=== PATIENT | female | born 1965 | race Caucasian/White ===

== ENCOUNTER 2017-10-30 21:22 | Emergency (ER) | payer OTHER ==
[2017-10-30] MEDS: IV NORMAL SALINE 1000ML BAG 1,000 ML IV ×2 (21:58)
[2017-10-30] MEDS: ASPIRIN CHEWABLE 81 MG TABLET. PO ×2 (21:58)
[2017-10-30] MEDS: IBUPROFEN 800 MG TABLET. PO ×2 (21:58)
[2017-10-30 22:20] LABS: ADD MAN DIFF? NO
[2017-10-30 22:21] LABS: BASO % 0 % (0-3); EOS # 0.2 x10^3/uL (0.0-0.7); EOS % 3 % (0-3); HEMOGLOBIN 13.4 g/dL (12.0-15.5); LYMPH # 2.5 x10^3/uL (1.0-4.8); LYMPH % 37 % (24-48); MEAN CORPUSCULAR HEMOGLOBIN 34 pg (25-35); MEAN CORPUSCULAR HGB CONC 35 g/dL (31-37); MEAN CORPUSCULAR VOLUME 98 fL (79-100); MONO # 0.4 x10^3/uL (0.0-1.1); MONO % 6 % (0-9); NEUT # 3.7 x10^3uL (1.8-7.7); NEUT % 54 % (31-73); PLATELET COUNT 238 x10^3/uL (140-400); RED BLOOD COUNT 3.99 x10^6/uL (3.50-5.40); RED CELL DISTRIBUTION WIDTH 12.5 % (11.5-14.5); WHITE BLOOD COUNT 6.9 x10^3/uL (4.0-11.0)
[2017-10-30 22:39] LABS: ANION GAP 4 (6-14); BLOOD UREA NITROGEN 13 mg/dL (7-20); BUN/CREATININE RATIO 14 (6-20); CALCIUM 8.6 mg/dL (8.5-10.1); CARBON DIOXIDE 29 mmol/L (21-32); CHLORIDE 105 mmol/L (98-107); CREATININE 0.9 mg/dL (0.6-1.0); GFR 65.8; GLUCOSE 88 mg/dL (70-99); POTASSIUM 3.8 mmol/L (3.5-5.1); SODIUM 138 mmol/L (136-145)
[2017-10-30 22:45] LABS: ALBUMIN 3.1 g/dL (3.4-5.0); ALBUMIN/GLOBULIN RATIO 0.9 (1.0-1.7); ALK PHOS 93 U/L (46-116); ALT (SGPT) 22 U/L (14-59); AST (SGOT) 22 U/L (15-37); TOTAL BILIRUBIN 0.1 mg/dL (0.2-1.0); TOTAL PROTEIN 6.6 g/dL (6.4-8.2)
[2017-10-30 22:49] LABS: TROPONINI < 0.017 ng/mL (0.000-0.055)
== END 2017-10-30 23:54 | disposition home or self-care (01) ==
LOC: ER 23:54
DX: R07.89 Other chest pain (principal); Z95.0 Presence of cardiac pacemaker; Z90.49 Acquired absence of other specified parts of digestive tract; Z79.82 Long term (current) use of aspirin
CPT/HCPCS: 36415; 71045; 80053; 84484; 85025; 93005; 96360; 99285-25; J7030

== ENCOUNTER 2018-08-20 07:31 | Emergency (ER) | payer OTHER ==
[~2018-08-20] VITALS: Ht 154.9 cm; Wt 65.8 kg
[~2018-08-20 07:31] MED LIST: Acetaminophen PO; IBUP-1027 PO; LIDO700A4 TD; NAPR-683 PO; ONDA4TAB10 SL
--- NOTE | 2018-08-20 08:34 | RAD ---
CHEST PA LATERAL Clinical indications: LEFT SIDED CHEST PAIN X TODAY COMPARISON: October 30, 2017. Findings: No acute lung infiltrate or pleural effusion or pulmonary edema or lung mass or pneumothorax is seen. Bipolar intraventricular pacemaker is again evident The heart size, pulmonary vasculature, mediastinum and both lesley are stable. The osseous structures appear intact. Impression: No acute radiographic abnormality is seen. Electronically signed by: Geronimo Doran MD (08/20/2018 8:30 AM) [facility]
--- NOTE | 2018-08-20 08:53 | EKG ---
[facility] [address] [place] [address] Test Date: 2018-08-20 Test Time: 07:38:24 Pat Name: BRODIE GUTHRIE Department: Room: Gender: F Accredited Pharmacy Technician: : 1965 Requested By: FRAN KAUFFMAN Order Number: [id number] Reading MD: Measurements Intervals [place] Rate: 69 P: 48 CT: 176 QRS: 11 QRSD: 82 T: 24 QT: 414 QTc: 445 Interpretive Statements SINUS RHYTHM LEFT ATRIAL ABNORMALITY INCOMPLETE RIGHT BUNDLE BRANCH BLOCK ABNORMAL ECG RI6.01 No previous ECG available for comparison
--- NOTE | 2018-08-20 09:18 | PHYS DOC ---
Past Medical History Past Medical History: Arrhythmia Additional Past Medical Histor: neurocardiogenic syncope, PACER Past Surgical History: Cholecystectomy, Pacemaker Alcohol Use: None Drug Use: None Adult General Chief Complaint Chief Complaint: CHEST PAIN HPI HPI Patient is a 53 year old [f__sex] who presents with [] Review of Systems Review of Systems Constitutional: Denies fever or chills [] Eyes: Denies change in visual acuity, redness, or eye pain [] HENT: Denies nasal congestion or sore throat [] Respiratory: Denies cough or shortness of breath [] Cardiovascular: No additional information not addressed in HPI [] GI: Denies abdominal pain, nausea, vomiting, bloody stools or diarrhea [] : Denies dysuria or hematuria [] Musculoskeletal: Denies back pain or joint pain [] Integument: Denies rash or skin lesions [] Neurologic: Denies headache, focal weakness or sensory changes [] Endocrine: Denies polyuria or polydipsia [] All other systems were reviewed and found to be within normal limits, except as documented in this note. Allergies Allergies Allergies Coded Allergies Type Severity Reaction Last Updated Verified Sulfa (Sulfonamide Antibiotics) Allergy Intermediate 04/17/14 No Physical Exam Physical Exam Constitutional: Well developed, well nourished, no acute distress, non-toxic appearance. [] HENT: Normocephalic, atraumatic, bilateral external ears normal, oropharynx moist, no oral exudates, nose normal. [] Eyes: PERRLA, EOMI, conjunctiva normal, no discharge. [] Neck: Normal range of motion, no tenderness, supple, no stridor. [] Cardiovascular:Heart rate regular rhythm, no murmur [] Lungs & Thorax: Bilateral breath sounds clear to auscultation [] Abdomen: Bowel sounds normal, soft, no tenderness, no masses, no pulsatile masses. [] Skin: Warm, dry, no erythema, no rash. [] Back: No tenderness, no CVA tenderness. [] Extremities: No tenderness, no cyanosis, no clubbing, ROM intact, no edema. [] Neurologic: Alert and oriented X 3, normal motor function, normal sensory function, no focal deficits noted. [] Psychologic: Affect normal, judgement normal, mood normal. [] Current Patient Data Vital Signs Vital Signs Date Time Temp Pulse Resp B/P (MAP) Pulse Ox O2 Delivery O2 Flow Rate FiO2 08/20/18 07:42 97.6 65 18 164/85 (111) 100 Room Air 97.6 Lab Values Laboratory Tests Test 08/20/18 09:05 White Blood Count 8.3 x10^3/uL (4.0-11.0) Red Blood Count 4.31 x10^6/uL (3.50-5.40) Hemoglobin 15.1 g/dL (12.0-15.5) Hematocrit 42.4 % (36.0-47.0) Mean Corpuscular Volume 98 fL (79-100) Mean Corpuscular Hemoglobin 35 pg (25-35) Mean Corpuscular Hemoglobin Concent 36 g/dL (31-37) Red Cell Distribution Width 12.3 % (11.5-14.5) Platelet Count 234 x10^3/uL (140-400) Neutrophils (%) (Auto) 70 % (31-73) Lymphocytes (%) (Auto) 22 % (24-48) L Monocytes (%) (Auto) 4 % (0-9) Eosinophils (%) (Auto) 3 % (0-3) Basophils (%) (Auto) 1 % (0-3) Neutrophils # (Auto) 5.9 x10^3uL (1.8-7.7) Lymphocytes # (Auto) 1.8 x10^3/uL (1.0-4.8) Monocytes # (Auto) 0.3 x10^3/uL (0.0-1.1) Eosinophils # (Auto) 0.3 x10^3/uL (0.0-0.7) Basophils # (Auto) 0.1 x10^3/uL (0.0-0.2) Sodium Level 140 mmol/L (136-145) Potassium Level 4.0 mmol/L (3.5-5.1) Chloride Level 103 mmol/L (98-107) Carbon Dioxide Level 26 mmol/L (21-32) Anion Gap 11 (6-14) Blood Urea Nitrogen 11 mg/dL (7-20) Creatinine 0.8 mg/dL (0.6-1.0) Estimated GFR (Cockcroft-Gault) 75.0 BUN/Creatinine Ratio 14 (6-20) Glucose Level 79 mg/dL (70-99) Calcium Level 9.9 mg/dL (8.5-10.1) Total Bilirubin 0.4 mg/dL (0.2-1.0) Aspartate Amino Transferase (AST) 20 U/L (15-37) Alanine Aminotransferase (ALT) 21 U/L (14-59) Alkaline Phosphatase 128 U/L (46-116) H Troponin I Quantitative < 0.017 ng/mL (0.000-0.055) Total Protein 8.6 g/dL (6.4-8.2) H Albumin 3.9 g/dL (3.4-5.0) Albumin/Globulin Ratio 0.8 (1.0-1.7) L Laboratory Tests 08/20/18 09:05 Laboratory Tests 08/20/18 09:05 EKG EKG [] Radiology/Procedures Radiology/Procedures [] PATIENT: BRODIE GUTHRIE ACCOUNT: [id number] : 1965 LOCATION: ER AGE: 53 SEX: F EXAM STATUS: REG ER ORD. PHYSICIAN: FRAN KAUFFMAN APRN REASON: fell, chest pain PROCEDURE: CHEST PA & LATERAL CHEST PA LATERAL Clinical indications: LEFT SIDED CHEST PAIN X TODAY COMPARISON: October 30, 2017. Findings: No acute lung infiltrate or pleural effusion or pulmonary edema or lung mass or pneumothorax is seen. Bipolar intraventricular pacemaker is again evident The heart size, pulmonary vasculature, mediastinum and both lesley are stable. The osseous structures appear intact. Impression: No acute radiographic abnormality is seen. Electronically signed by: Paige Doran MD (08/20/2018 8:30 AM) [facility] DICTATED and SIGNED BY: PAIGE DORAN MD DATE: 08/20/18 0828 Course & Med Decision Making Course & Med Decision Making Pertinent Labs and Imaging studies reviewed. (See chart for details) [] Dragon Disclaimer Dragon Disclaimer This electronic medical record was generated, in whole or in part, using a voice recognition dictation system. Departure Departure Impression: Primary Impression: Shoulder pain Additional Impression: Rib pain Disposition: 01 HOME, SELF-CARE Condition: STABLE Referrals: SHAHRAM GRAFF MD (PCP) Patient Instructions: Rib Contusion, Shoulder Pain Additional Instructions: You may take ibuprofen or Tylenol at home for pain. You may use ice packs or heating pad for comfort. Follow-up with your primary care provider in 3 days if not improving or return to the emergency department if worsening. Problem Qualifiers FRAN KAUFFMAN APRN Aug 20, 2018 09:18
[2018-08-20 09:19] LABS: BASO # 0.1 x10^3/uL (0.0-0.2); BASO % 1 % (0-3); EOS # 0.3 x10^3/uL (0.0-0.7); EOS % 3 % (0-3); HEMATOCRIT 42.4 % (36.0-47.0); HEMOGLOBIN 15.1 g/dL (12.0-15.5); LYMPH # 1.8 x10^3/uL (1.0-4.8); LYMPH % 22 % (24-48); MEAN CORPUSCULAR HEMOGLOBIN 35 pg (25-35); MEAN CORPUSCULAR HGB CONC 36 g/dL (31-37); MEAN CORPUSCULAR VOLUME 98 fL (79-100); MONO # 0.3 x10^3/uL (0.0-1.1); MONO % 4 % (0-9); NEUT # 5.9 x10^3uL (1.8-7.7); NEUT % 70 % (31-73); PLATELET COUNT 234 x10^3/uL (140-400); RED BLOOD COUNT 4.31 x10^6/uL (3.50-5.40); RED CELL DISTRIBUTION WIDTH 12.3 % (11.5-14.5); WHITE BLOOD COUNT 8.3 x10^3/uL (4.0-11.0)
[2018-08-20 09:38] LABS: CALCIUM 9.9 mg/dL (8.5-10.1); CREATININE 0.8 mg/dL (0.6-1.0)
[2018-08-20 09:41] LABS: ALBUMIN 3.9 g/dL (3.4-5.0); ALBUMIN/GLOBULIN RATIO 0.8 (1.0-1.7); TOTAL BILIRUBIN 0.4 mg/dL (0.2-1.0); TOTAL PROTEIN 8.6 g/dL (6.4-8.2)
[2018-08-20 10:30] VITALS: BP 132/72
== END 2018-08-20 10:45 | disposition home or self-care (01) ==
LOC: ER 07:31
DX: R07.81 Pleurodynia (principal); M25.512 Pain in left shoulder; G89.11 Acute pain due to trauma; Z95.0 Presence of cardiac pacemaker; Z88.2 Allergy status to sulfonamides; W10.8XXA Fall (on) (from) other stairs and steps, initial encounter; Y93.89 Activity, other specified; Y92.89 Other specified places as the place of occurrence of the external cause; Y99.8 Other external cause status
CPT/HCPCS: 36415; 71046; 80053; 84484; 85025; 93005; 99284

== ENCOUNTER 2018-09-06 21:20 | Emergency (ER) | payer OTHER ==
[~2018-09-06] VITALS: Ht 154.9 cm; Wt 65.8 kg
[~2018-09-06 21:20] MED LIST changes: +BENZ100C PO
[2018-09-06] MEDS ORDERED: CYCL5TAB PO (21:56)
--- NOTE | 2018-09-06 21:57 | PHYS DOC ---
Past Medical History Past Medical History: Arrhythmia, Hepatitis Additional Past Medical Histor: neurocardiogenic syncope, PACER Past Surgical History: Cholecystectomy, Pacemaker Alcohol Use: None Drug Use: None Adult General Chief Complaint Chief Complaint: Congestion HPI HPI Patient is a 53 year old female who presents with a hacking cough and congestion. The patient states that she was seen in this facility approximately one week ago and diagnosed with an upper respiratory infection. She states that her cough has significantly worsened and she is now coughing to the point of losing urine. She denies fever, sore throat, earaches or nausea and vomiting. She has been taking dyer-zwz-pdztsiz cough medication with little relief. Review of Systems Review of Systems Constitutional: Denies fever or chills [] Eyes: Denies change in visual acuity, redness, or eye pain [] HENT: Denies nasal congestion or sore throat [] Respiratory: See history of present illness Cardiovascular: No additional information not addressed in HPI [] GI: Denies abdominal pain, nausea, vomiting, bloody stools or diarrhea [] : Denies dysuria or hematuria [] Musculoskeletal: Denies back pain or joint pain [] Integument: Denies rash or skin lesions [] Neurologic: Denies headache, focal weakness or sensory changes [] Endocrine: Denies polyuria or polydipsia [] All other systems were reviewed and found to be within normal limits, except as documented in this note. Current Medications Current Medications Current Medications Medications (Trade) Dose Ordered Sig/Tiara Start Time Stop Time Status Last Admin Dose Admin Albuterol Sulfate (Ventolin Neb Soln) 2.5 mg 1X ONCE 09/06/18 22:15 09/06/18 22:16 DC 09/06/18 22:44 2.5 MG Guaifenesin/ Codeine Phosphate (Robitussin Ac) 5 ml PRN Q6HRS PRN 09/06/18 22:15 09/06/18 23:02 DC 09/06/18 22:29 5 ML Prednisone (Prednisone) 50 mg 1X ONCE 09/06/18 22:15 09/06/18 22:16 DC 09/06/18 22:30 50 MG Allergies Allergies Allergies Coded Allergies Type Severity Reaction Last Updated Verified Sulfa (Sulfonamide Antibiotics) Allergy Intermediate 04/17/14 No Physical Exam Physical Exam Constitutional: Well developed, well nourished, no acute distress, non-toxic appearance. [] HENT: Normocephalic, atraumatic, bilateral tympanic membranes normal, oropharynx moist, no oral exudates, nose normal. [] Eyes: PERRLA, EOMI, conjunctiva normal, no discharge. [] Neck: Normal range of motion, no tenderness, supple, no stridor. [] Cardiovascular:Heart rate regular rhythm, no murmur [] Lungs & Thorax: Bilateral breath sounds decreased with a harsh hacking cough noted Abdomen: Bowel sounds normal, soft, no tenderness, no masses, no pulsatile masses. [] Skin: Warm, dry, no erythema, no rash. [] Back: No tenderness, no CVA tenderness. [] Extremities: No tenderness, no cyanosis, no clubbing, ROM intact, no edema. [] Neurologic: Alert and oriented X 3, normal motor function, normal sensory function, no focal deficits noted. [] Psychologic: Affect normal, judgement normal, mood normal. [] Current Patient Data Vital Signs Vital Signs Date Time Temp Pulse Resp B/P (MAP) Pulse Ox O2 Delivery O2 Flow Rate FiO2 09/06/18 22:43 99 Room Air 09/06/18 22:01 98.2 81 18 159/78 (105) 98.2 EKG EKG [] Radiology/Procedures Radiology/Procedures []No acute cardiopulmonary process noted. This x-ray was read by Dr. Boyce in the emergency department. Course & Med Decision Making Course & Med Decision Making Pertinent Labs and Imaging studies reviewed. (See chart for details) []The patient was given prednisone, and albuterol treatment as well as codeine cough medication in the emergency department. Dragon Disclaimer Dragon Disclaimer This electronic medical record was generated, in whole or in part, using a voice recognition dictation system. Departure Departure Impression: Primary Impression: Bronchitis Disposition: 01 HOME, SELF-CARE Condition: STABLE Referrals: SHAHRAM GRAFF MD (PCP) Patient Instructions: Acute Bronchitis Additional Instructions: Take medications as prescribed. Do not drive or operate heavy machinery while taking the cough medication. Follow-up with your primary care provider for recheck in 3 days or return to the emergency department if worsening. Scripts Albuterol Sulfate (Proair Hfa) 8.5 Gm Hfa.aer.ad 1 PUFF INH PRN Q6HRS PRN for SHORTNESS OF BREATH, #1 INHALER Prov: FRAN KAUFFMAN APRN 09/06/18 Prednisone (PREDNISONE) 50 Mg Tablet 1 TAB PO DAILY for bronchitis, #5 TAB Prov: FRAN KAUFFMAN APRN 09/06/18 Hydrocodone/Chlorphen Polis (HYDROCODONE-CHLORPHENIRAM SUSP) 5 Ml Sharonda.er.12h 5 ML PO PRN Q12HR PRN for COUGH, #120 ML 0 Refills Prov: FRAN KAUFFMAN APRN 09/06/18 Azithromycin (ZITHROMAX) 250 Mg Tablet 1 PKG PO UD for bronchitis, #1 PKG Prov: FRAN KAUFFMAN APRN 09/06/18 FRAN KAUFFMAN APRN Sep 06, 2018 21:57
[2018-09-06 22:01] VITALS: BP 159/78
[2018-09-06] MEDS ORDERED: predniSONE 10 MG TABLET PO ONE (22:15)
[2018-09-06] MEDS ORDERED: ALBUTEROL SULFATE 2.5 MG/3 ML NEBU. NEB ONE (22:15)
[2018-09-06] MEDS ORDERED: guaiFENesin/CODEINE 100mg/10mg 5 ML LIQUID PO PRN (22:15)
[2018-09-06] MEDS ORDERED: AZIT250T PO (22:48)
[2018-09-06] MEDS ORDERED: HYDR5SUS PO (22:48)
[2018-09-06] MEDS ORDERED: ALBU2.5V8 INH (22:49)
[2018-09-06] MEDS ORDERED: PRED50TA PO (22:49)
--- NOTE | 2018-09-06 23:59 | RAD ---
Chest PA and lateral 09/06/2018. Reason for exam: Productive cough for 2 weeks. Comparison is made with a study of 08/20/2018. A pacemaker device remains in place. There may be slightly less interstitial prominence in the lungs. No new infiltrate or effusion is seen. Heart size and pulmonary vascularity appear normal. IMPRESSION: No acute findings. Electronically signed by: Henry Ruff Jr., MD (09/06/2018 11:55 PM) [facility]
== END 2018-09-06 22:55 | disposition home or self-care (01) ==
LOC: ER 21:20
DX: J40 Bronchitis, not specified as acute or chronic (principal); Z90.49 Acquired absence of other specified parts of digestive tract; Z86.19 Personal history of other infectious and parasitic diseases
CPT/HCPCS: 71046; 94640; 99283; J7512; J7613

== ENCOUNTER 2018-09-14 17:46 | Emergency (ER) | payer OTHER ==
[~2018-09-14] VITALS: Ht 154.9 cm; Wt 63.5 kg
[~2018-09-14 17:46] MED LIST changes: +ALBU2.5V8 INH; +AZIT250T PO; +CYCL5TAB PO; +HYDR5SUS PO; +PRED50TA PO
[2018-09-14 18:56] LABS: BILIRUBIN,URINE NEGATIVE (NEG); CLARITY,URINE CLEAR; COLOR,URINE YELLOW; NITRITE,URINE NEGATIVE (NEG); PH,URINE 6.5; PROTEIN,URINE NEGATIVE (NEG-TRACE); UROBILINOGEN,URINE 0.2 mg/dL (0.2 mg/dL)
[2018-09-14 18:56] LABS: BASO # 0.1 x10^3/uL (0.0-0.2); BASO % 1 % (0-3); EOS # 0.3 x10^3/uL (0.0-0.7); EOS % 3 % (0-3); HEMATOCRIT 39.3 % (36.0-47.0); HEMOGLOBIN 13.8 g/dL (12.0-15.5); LYMPH # 2.8 x10^3/uL (1.0-4.8); LYMPH % 26 % (24-48); MEAN CORPUSCULAR HEMOGLOBIN 34 pg (25-35); MEAN CORPUSCULAR HGB CONC 35 g/dL (31-37); MEAN CORPUSCULAR VOLUME 98 fL (79-100); MONO # 0.6 x10^3/uL (0.0-1.1); MONO % 6 % (0-9); NEUT # 6.8 x10^3uL (1.8-7.7); NEUT % 65 % (31-73); PLATELET COUNT 251 x10^3/uL (140-400); RED BLOOD COUNT 4.01 x10^6/uL (3.50-5.40); RED CELL DISTRIBUTION WIDTH 12.7 % (11.5-14.5); WHITE BLOOD COUNT 10.6 x10^3/uL (4.0-11.0)
[2018-09-14 19:05] LABS: FECAL OB PT NEGATIVE (NEG)
[2018-09-14 19:07] LABS: BACTERIA,URINE 0 /HPF (0-FEW); RBC,URINE 0 /HPF (0-2); SQUAMOUS EPITHELIAL CELL,UR OCC /LPF; WBC,URINE OCC /HPF (0-4)
[2018-09-14 19:16] LABS: CALCIUM 8.9 mg/dL (8.5-10.1); CREATININE 0.9 mg/dL (0.6-1.0); GFR 65.5; POTASSIUM 3.4 mmol/L (3.5-5.1)
[2018-09-14 20:15] VITALS: BP 126/83
[2018-09-14] MEDS ORDERED: POTASSIUM CHLORIDE 20 MEQ TABLET.ER. PO ONE (20:15)
[2018-09-14] MEDS ORDERED: ALBU2.5V8 INH (20:43)
--- NOTE | 2018-09-14 20:44 | PHYS DOC ---
Past Medical History Past Medical History: Arrhythmia, Hepatitis Additional Past Medical Histor: neurocardiogenic syncope, PACER Past Surgical History: Cholecystectomy, Pacemaker Alcohol Use: None Drug Use: None Adult General Chief Complaint Chief Complaint: FLU SYMPTOM HPI HPI Patient is a 53 year old female, accompanied by her family, who presents to the emergency department with complaints of continued dry cough, chest congestion, and nasal congestion for the last 3 weeks. Patient states she has had diarrhea for the last 3 days. She states that she has been seen for upper respiratory illness several times in the ER recently but she feels like she is getting worse. Patient denies any fever, nausea, vomiting, or abdominal pain. She states that after she has diarrhea there is bright red blood on the toilet tissue. She denies any foul odor to the stools or any black stools. She reports fatigue and generalized body aches since the onset of her respiratory illness 3 weeks ago. Review of Systems Review of Systems Constitutional: Denies fever, see history of present illness Eyes: Denies redness, or eye pain [] HENT: Denies ear pain or sore throat; see history of present illness [] Respiratory: Reports dry cough with mild shortness of breath, denies wheezing Cardiovascular: No additional information not addressed in HPI [] GI: Denies abdominal pain, nausea, or vomiting; see history of present illness : Denies dysuria or hematuria [] Musculoskeletal: Reports generalized body aches Integument: Denies rash or skin lesions [] Neurologic: Denies headache, focal weakness or sensory changes [] Complete systems were reviewed and found to be within normal limits, except as documented in this note. Current Medications Current Medications Current Medications Medications (Trade) Dose Ordered Sig/Tiara Start Time Stop Time Status Last Admin Dose Admin Potassium Chloride (Klor-Con) 20 meq 1X ONCE 09/14/18 20:15 09/14/18 20:16 DC 09/14/18 20:17 20 MEQ Allergies Allergies Allergies Coded Allergies Type Severity Reaction Last Updated Verified Sulfa (Sulfonamide Antibiotics) Allergy Intermediate 04/17/14 No Physical Exam Physical Exam Constitutional: Well developed, well nourished, no acute distress, non-toxic appearance. [] HENT: Normocephalic, atraumatic, bilateral external ears normal, bilateral TMs normal, posterior pharynx normal, oropharynx moist, no oral exudates, nose normal. [] Eyes: conjunctiva normal, no discharge. [] Neck: Normal range of motion, no tenderness, supple, no stridor. [] Cardiovascular:Heart rate regular rhythm, no murmur [] Lungs & Thorax: Bilateral breath sounds clear to auscultation [] Abdomen: Bowel sounds normal, soft, no tenderness, no masses, no pulsatile masses. Rectal Exam: Normal tone, No mass, Positive control Stool: Brown Guaiac: Negative [] Skin: Warm, dry, no erythema, no rash. [] Extremities: No cyanosis, no clubbing, ROM intact, no edema. [] Neurologic: Alert and oriented X 3, normal motor function, normal sensory function, no focal deficits noted. [] Psychologic: Affect normal, judgement normal, mood normal. [] Current Patient Data Vital Signs Vital Signs Date Time Temp Pulse Resp B/P (MAP) Pulse Ox O2 Delivery O2 Flow Rate FiO2 09/14/18 20:15 70 18 126/83 (97) 99 09/14/18 18:05 97.6 Room Air 97.6 Lab Values Laboratory Tests Test 09/14/18 18:20 09/14/18 18:38 09/14/18 18:44 Stool Occult Blood Negative (NEG) Urine Color Yellow Urine Clarity Clear Urine pH 6.5 Urine Specific Roe <=1.005 Urine Protein Negative mg/dL (NEG-TRACE) Urine Glucose (UA) Negative mg/dL (NEG) Urine Ketones (Stick) Negative mg/dL (NEG) Urine Blood Negative (NEG) Urine Nitrite Negative (NEG) Urine Bilirubin Negative (NEG) Urine Urobilinogen Dipstick 0.2 mg/dL (0.2 mg/dL) Urine Leukocyte Esterase Negative (NEG) Urine RBC 0 /HPF (0-2) Urine WBC Occ /HPF (0-4) Urine Squamous Epithelial Cells Occ /LPF Urine Bacteria 0 /HPF (0-FEW) White Blood Count 10.6 x10^3/uL (4.0-11.0) Red Blood Count 4.01 x10^6/uL (3.50-5.40) Hemoglobin 13.8 g/dL (12.0-15.5) Hematocrit 39.3 % (36.0-47.0) Mean Corpuscular Volume 98 fL (79-100) Mean Corpuscular Hemoglobin 34 pg (25-35) Mean Corpuscular Hemoglobin Concent 35 g/dL (31-37) Red Cell Distribution Width 12.7 % (11.5-14.5) Platelet Count 251 x10^3/uL (140-400) Neutrophils (%) (Auto) 65 % (31-73) Lymphocytes (%) (Auto) 26 % (24-48) Monocytes (%) (Auto) 6 % (0-9) Eosinophils (%) (Auto) 3 % (0-3) Basophils (%) (Auto) 1 % (0-3) Neutrophils # (Auto) 6.8 x10^3uL (1.8-7.7) Lymphocytes # (Auto) 2.8 x10^3/uL (1.0-4.8) Monocytes # (Auto) 0.6 x10^3/uL (0.0-1.1) Eosinophils # (Auto) 0.3 x10^3/uL (0.0-0.7) Basophils # (Auto) 0.1 x10^3/uL (0.0-0.2) Sodium Level 136 mmol/L (136-145) Potassium Level 3.4 mmol/L (3.5-5.1) L Chloride Level 103 mmol/L (98-107) Carbon Dioxide Level 28 mmol/L (21-32) Anion Gap 5 (6-14) L Blood Urea Nitrogen 11 mg/dL (7-20) Creatinine 0.9 mg/dL (0.6-1.0) Estimated GFR (Cockcroft-Gault) 65.5 Glucose Level 84 mg/dL (70-99) Calcium Level 8.9 mg/dL (8.5-10.1) Laboratory Tests 09/14/18 18:44 Laboratory Tests 09/14/18 18:44 EKG EKG [] Radiology/Procedures Radiology/Procedures CXR negative for acute findings, read by Dr. Tamez[] Course & Med Decision Making Course & Med Decision Making Pertinent Labs and Imaging studies reviewed. (See chart for details) Advised patient of lab results and chest x-ray report. Patient was given a by mouth potassium in the emergency department. Clear fluids were encouraged for the next 24 hours then advance diet as tolerated. Prescription for an albuterol inhaler was written. Patient encouraged to take gemq-ujl-gqokuzq medication as needed for cough. Follow-up with primary care doctor next week, return to ER symptoms are worse. Patient verbalized an understanding of home care, medications, follow-up, and return to ED instructions and was in agreement with the plan of care. [] Dragon Disclaimer Dragon Disclaimer This electronic medical record was generated, in whole or in part, using a voice recognition dictation system. Departure Departure Impression: Primary Impression: Diarrhea Additional Impressions: URI with cough and congestion Hypokalemia Disposition: 01 HOME, SELF-CARE Condition: STABLE Referrals: SHAHRAM GRAFF MD (PCP) Patient Instructions: Diarrhea, Pada-ks-Gfmi, Upper Respiratory Infection, Adult, Espc-md-Nxdu Additional Instructions: Fill prescriptions and use them as directed. Recommend clear fluids for the next 24 hours. Then you may advance to bland foods such as bananas, rice, applesauce, and dry toast. Follow-up with your primary care doctor in the next 1 -2 days. Return to the emergency room if your symptoms worsen. Scripts Albuterol Sulfate (PROAIR HFA INHALER) 8.5 Gm Hfa.aer.ad 1-2 PUFF INH PRN Q6HRS PRN for SHORTNESS OF BREATH for 10 Days, #1 INHALER 0 Refills Prov: WISAM PETERSEN APRN 09/14/18 Problem Qualifiers Primary Impression: Diarrhea Diarrhea type: unspecified type Qualified Codes: R19.7 - Diarrhea, unspecified WISAM PETERSEN [employer] Sep 14, 2018 20:43
--- NOTE | 2018-09-14 23:53 | RAD ---
Chest PA and lateral: Reason for examination: Cough for 3 weeks. Comparison is made to previous study dated 09/06/2018. Pacemaker remains present over the right hemithorax. The heart size is normal. Mediastinum is unremarkable. Lung simeon are clear. No acute bony abnormalities are seen. Impression: No acute cardiopulmonary disease. Electronically signed by: Jessica Trinh MD (09/14/2018 11:48 PM) [facility]
== END 2018-09-14 20:53 | disposition home or self-care (01) ==
LOC: ER 17:46
DX: J06.9 Acute upper respiratory infection, unspecified (principal); R19.7 Diarrhea, unspecified; E87.6 Hypokalemia; Z95.0 Presence of cardiac pacemaker; Z88.2 Allergy status to sulfonamides
CPT/HCPCS: 36415; 71046; 80048; 81001; 82274; 85025; 99284

== ENCOUNTER 2019-11-21 20:19 | Emergency (ER) | payer OTHER ==
[~2019-11-21] VITALS: Ht 154.9 cm; Wt 59.0 kg
--- NOTE | 2019-11-21 20:33 | PHYS DOC ---
Past Medical History Past Medical History: Arrhythmia, Hepatitis Additional Past Medical Histor: neurocardiogenic syncope, PACER Past Surgical History: Cholecystectomy, Pacemaker Smoking Status: Never Smoker Alcohol Use: None Drug Use: None Adult General Chief Complaint Chief Complaint: CHEST PAIN [facility] HPI 54-year-old female presents to the emergency department with complaints of cough, hemoptysis. She states her was diagnosed with influenza 2 days ago, she states her symptoms started this morning. She describes nausea, vomiting no abdominal pain or diarrhea. She is coughing. She's had intermittent fever. She's had no travel. Patient taken no medications [id number]. She denies any visual changes, abdominal pain, dysuria or back pain. Review of Systems Review of Systems Constitutional: intermittent fever/chills Eyes: Denies change in visual acuity, redness, or eye pain [] Respiratory: cough Cardiovascular: No additional information not addressed in HPI [] GI: Denies abdominal pain, + nausea, vomiting, no bloody stools or diarrhea [] : Denies dysuria or hematuria [] Musculoskeletal: Denies back pain or joint pain [] Integument: Denies rash or skin lesions [] Neurologic: Denies headache, focal weakness or sensory changes [] All other systems were reviewed and found to be within normal limits, except as documented in this note. Allergies Allergies Allergies Coded Allergies Type Severity Reaction Last Updated Verified Sulfa (Sulfonamide Antibiotics) Allergy Intermediate 04/17/14 No Physical Exam Physical Exam Constitutional: Well developed, well nourished, no acute distress, non-toxic appearance. [] HENT: Normocephalic, atraumatic, bilateral external ears normal, oropharynx moist, no oral exudates, nose normal. [] Eyes: PERRLA, EOMI, conjunctiva normal, no discharge. [] Cardiovascular:Heart rate regular rhythm, no murmur [] Lungs & Thorax: Bilateral breath sounds clear to auscultation [] Abdomen: Bowel sounds normal, soft, no tenderness, no masses, no pulsatile masses. [] Skin: Warm, dry, no erythema, no rash. [] Back: No tenderness, no CVA tenderness. [] Extremities: No tenderness, no edema. [] Neurologic: Alert and oriented X 3, no focal deficits noted. [] Psychologic: Affect normal, judgement normal, mood normal. [] Current Patient Data Vital Signs Vital Signs Date Time Temp Pulse Resp B/P (MAP) Pulse Ox O2 Delivery O2 Flow Rate FiO2 11/21/19 20:30 101.1 77 18 132/70 (90) 98 Room Air 101.1 Lab Values Laboratory Tests Test 11/21/19 20:35 11/21/19 21:00 11/21/19 21:34 White Blood Count 7.4 x10^3/uL (4.0-11.0) Red Blood Count 3.91 x10^6/uL (3.50-5.40) Hemoglobin 13.4 g/dL (12.0-15.5) Hematocrit 38.6 % (36.0-47.0) Mean Corpuscular Volume 99 fL (79-100) Mean Corpuscular Hemoglobin 34 pg (25-35) Mean Corpuscular Hemoglobin Concent 35 g/dL (31-37) Red Cell Distribution Width 12.3 % (11.5-14.5) Platelet Count 211 x10^3/uL (140-400) Neutrophils (%) (Auto) 81 % (31-73) H Lymphocytes (%) (Auto) 10 % (24-48) L Monocytes (%) (Auto) 8 % (0-9) Eosinophils (%) (Auto) 1 % (0-3) Basophils (%) (Auto) 0 % (0-3) Neutrophils # (Auto) 6.0 x10^3/uL (1.8-7.7) Lymphocytes # (Auto) 0.8 x10^3/uL (1.0-4.8) L Monocytes # (Auto) 0.6 x10^3/uL (0.0-1.1) Eosinophils # (Auto) 0.1 x10^3/uL (0.0-0.7) Basophils # (Auto) 0.0 x10^3/uL (0.0-0.2) Sodium Level 138 mmol/L (136-145) Potassium Level 4.3 mmol/L (3.5-5.1) Chloride Level 103 mmol/L (98-107) Carbon Dioxide Level 25 mmol/L (21-32) Anion Gap 10 (6-14) Blood Urea Nitrogen 10 mg/dL (7-20) Creatinine 1.0 mg/dL (0.6-1.0) Estimated GFR (Cockcroft-Gault) 57.8 BUN/Creatinine Ratio 10 (6-20) Glucose Level 93 mg/dL (70-99) Calcium Level 8.9 mg/dL (8.5-10.1) Magnesium Level 1.9 mg/dL (1.8-2.4) Total Bilirubin 0.5 mg/dL (0.2-1.0) Aspartate Amino Transferase (AST) 27 U/L (15-37) Alanine Aminotransferase (ALT) 25 U/L (14-59) Alkaline Phosphatase 91 U/L (46-116) Troponin I Quantitative < 0.017 ng/mL (0.000-0.055) VQ-Eem-X-Type Natriuretic Peptide 268 pg/mL (0-124) H Total Protein 6.9 g/dL (6.4-8.2) Albumin 3.7 g/dL (3.4-5.0) Albumin/Globulin Ratio 1.2 (1.0-1.7) Influenza Type A Antigen Positive (NEGATIVE) Influenza Type B Antigen Negative (NEGATIVE) Urine Collection Type Unknown Urine Color Yellow Urine Clarity Cloudy Urine pH 7.5 (<5.0-8.0) Urine Specific Greer 1.020 (1.000-1.030) Urine Protein Negative mg/dL (NEG-TRACE) Urine Glucose (UA) Negative mg/dL (NEG) Urine Ketones (Stick) Negative mg/dL (NEG) Urine Blood Negative (NEG) Urine Nitrite Negative (NEG) Urine Bilirubin Negative (NEG) Urine Urobilinogen Dipstick 1.0 mg/dL (0.2 mg/dL) Urine Leukocyte Esterase Negative (NEG) Urine RBC 0 /HPF (0-2) Urine WBC 1-4 /HPF (0-4) Urine Squamous Epithelial Cells Few /LPF Urine Amorphous Sediment Present /HPF Urine Bacteria 0 /HPF (0-FEW) Urine Mucus Slight /LPF Laboratory Tests 11/21/19 20:35 Laboratory Tests 11/21/19 20:35 EKG EKG EKG reviewed interpretation time 2032, normal sinus rhythm, normal axis, no evidence of ST elevation MO, heart rate 78[] Radiology/Procedures Radiology/Procedures [facility] [address] [place], [place] [id number] IMAGING REPORT Signed PATIENT: JERRIBRODIE S ACCOUNT: [id number] : 1965 LOCATION: ER AGE: 54 SEX: F EXAM STATUS: REG ER ORD. PHYSICIAN: STEFAN MARIE MD REASON: chest pain/hemoptysis PROCEDURE: PORTABLE CHEST 1V Study: PORTABLE CHEST 1V Indication: Chest pain. Hemoptysis. Comparison: 09/14/2018 Findings: Right chest wall dual-lead pacer. Multiple EKG wires. The cardiomediastinal silhouette is unchanged in size. Similar configuration of the left lesley. Less pronounced soft tissue fullness at the right hilar region relative to the prior exam but note is again made of right hilar granulomas. No pneumothorax, lobar consolidation or pleural effusion. Impression: No acute radiographic abnormality of the chest. Electronically signed by: KIAN ALMARAZ MD (11/21/2019 8:54 PM) [id number] DICTATED and SIGNED BY: KIAN ALMARAZ MD DATE: 11/21/192053 [] Course & Med Decision Making Course & Med Decision Making Pertinent Labs and Imaging studies reviewed. (See chart for details) []54-year-old female presents to the emergency department with complaints of cough, hemoptysis. She states her was diagnosed with influenza 2 days ago, she states her symptoms started this morning. She describes nausea, vomiting no abdominal pain or diarrhea. She is coughing. She's had intermittent fever. She's had no travel. Patient taken no medications [id number]. She denies any visual changes, abdominal pain, dysuria or back pain. Labs reviewed + influenza A CXR without acute consolidation Tamiflu BID x 5 days Encourage po intake Dragon Disclaimer Dragon Disclaimer This electronic medical record was generated, in whole or in part, using a voice recognition dictation system. The HEART Score for CP Pts HEART Score for Chest Pain: HEART Score for Chest Pain Response (Comments) Value History Slighlty/Non-Suspicious 0 ECG Nonspecific Repolarizatio 1 Age >45 - < 65 1 Risk Factors >3 Risk Factors or Hx CAD 2 Troponin < Normal Limit 0 Total 4 Risk Factors: Risk Factors: DM, Current or recent (<one month) smoker, HTN, HLP, family history of CAD, obesity. Risk Scores: Score 0 - 3: 2.5% MACE over next 6 weeks - Discharge Home Score 4 - 6: 20.3% MACE over next 6 weeks - Admit for Clinical Observation Score 7 - 10: 72.7% MACE over next 6 weeks - Early Invasive Strategies Departure Departure Impression: Primary Impression: Influenza A Disposition: 01 HOME, SELF-CARE Condition: STABLE Referrals: SHAHRAM GRAFF MD (PCP) Patient Instructions: Influenza, Adult Additional Instructions: Recommend tamiflu BID x 5 days Recommend fluids, tylenol/motrin as needed for fever Contain yourself until symptoms have subsequently resolved Return to the ER with altered mental status, uncontrolled fever (doesn't respond to tylenol/motrin) Scripts Oseltamivir Phosphate (TAMIFLU) 75 Mg Capsule 1 CAP PO BID, #10 CAP Prov: STEFAN MARIE MD 11/21/19 STEFAN MARIE MD Nov 21, 2019 20:33
[2019-11-21 20:45] LABS: BASO % 0 % (0-3); EOS # 0.1 x10^3/uL (0.0-0.7); EOS % 1 % (0-3); HEMATOCRIT 38.6 % (36.0-47.0); HEMOGLOBIN 13.4 g/dL (12.0-15.5); LYMPH # 0.8 x10^3/uL (1.0-4.8); LYMPH % 10 % (24-48); MEAN CORPUSCULAR HEMOGLOBIN 34 pg (25-35); MEAN CORPUSCULAR HGB CONC 35 g/dL (31-37); MEAN CORPUSCULAR VOLUME 99 fL (79-100); MONO # 0.6 x10^3/uL (0.0-1.1); MONO % 8 % (0-9); NEUT % 81 % (31-73); PLATELET COUNT 211 x10^3/uL (140-400); RED BLOOD COUNT 3.91 x10^6/uL (3.50-5.40); RED CELL DISTRIBUTION WIDTH 12.3 % (11.5-14.5); WHITE BLOOD COUNT 7.4 x10^3/uL (4.0-11.0)
--- NOTE | 2019-11-21 20:57 | RAD ---
Study: PORTABLE CHEST 1V Indication: Chest pain. Hemoptysis. Comparison: 09/14/2018 Findings: Right chest wall dual-lead pacer. Multiple EKG wires. The cardiomediastinal silhouette is unchanged in size. Similar configuration of the left lesley. Less pronounced soft tissue fullness at the right hilar region relative to the prior exam but note is again made of right hilar granulomas. No pneumothorax, lobar consolidation or pleural effusion. Impression: No acute radiographic abnormality of the chest. Electronically signed by: KIAN ALMARAZ MD (11/21/2019 8:54 PM) [id number]
[2019-11-21 20:59] LABS: CALCIUM 8.9 mg/dL (8.5-10.1); GFR 57.8; POTASSIUM 4.3 mmol/L (3.5-5.1)
[2019-11-21 21:05] LABS: ALBUMIN 3.7 g/dL (3.4-5.0); ALBUMIN/GLOBULIN RATIO 1.2 (1.0-1.7); MAGNESIUM 1.9 mg/dL (1.8-2.4); TOTAL BILIRUBIN 0.5 mg/dL (0.2-1.0); TOTAL PROTEIN 6.9 g/dL (6.4-8.2)
[2019-11-21 21:33] LABS: INFLUENZA A PATIENT POSITIVE (NEGATIVE); INFLUENZA B PATIENT NEGATIVE (NEGATIVE)
[2019-11-21 21:40] LABS: BILIRUBIN,URINE NEGATIVE (NEG); CLARITY,URINE CLOUDY; COLOR,URINE YELLOW; NITRITE,URINE NEGATIVE (NEG); PH,URINE 7.5 (<5.0-8.0); PROTEIN,URINE NEGATIVE (NEG-TRACE)
[2019-11-21 21:45] LABS: SQUAMOUS EPITHELIAL CELL,UR FEW /LPF
[2019-11-21 21:46] LABS: AMORPHOUS SEDIMENT,UR PRESENT /HPF; BACTERIA,URINE 0 /HPF (0-FEW); RBC,URINE 0 /HPF (0-2)
[2019-11-21 22:03] VITALS: BP 114/55
[2019-11-21] MEDS ORDERED: OSEL75CA PO (22:07)
--- NOTE | 2019-11-21 22:45 | EKG ---
[facility] [address] [place] [address] Test Date: 2019-11-21 Test Time: 20:29:31 Pat Name: BRODIE GUTHRIE Department: Room: Gender: F Briquetter Operator: : 1965 Requested By: STEFAN MARIE Order Number: [id number] Reading MD: Measurements Intervals [place] Rate: 78 P: 48 ID: [id number] QRS: 21 QRSD: 80 T: 52 QT: 356 QTc: 409 Interpretive Statements SINUS RHYTHM LEFT ATRIAL ABNORMALITY NON SPECIFIC T ABNORMALITY NON SPECIFIC ST DEPRESSION ABNORMAL ECG No previous ECG available for comparison
== END 2019-11-21 22:24 | disposition home or self-care (01) ==
LOC: ER 20:19
DX: J10.1 Influenza due to other identified influenza virus with other respiratory manifestations (principal); Z95.0 Presence of cardiac pacemaker; Z88.2 Allergy status to sulfonamides
CPT/HCPCS: 36415; 71045; 80053; 81001; 83735; 83880; 84484; 85025; 87804; 93005; 99285-25

== ENCOUNTER 2021-02-03 11:46 | Emergency (ER) | payer OTHER ==
[~2021-02-03] VITALS: Ht 154.9 cm; Wt 65.9 kg
[~2021-02-03 11:46] MED LIST changes: +OSEL75CA PO
--- NOTE | 2021-02-03 13:33 | ED.ADGEN ---
Past Medical History Past Medical History: Arrhythmia, Hepatitis Additional Past Medical Histor: neurocardiogenic syncope, PACER Past Surgical History: Cholecystectomy, Pacemaker Smoking Status: Never Smoker Alcohol Use: None Drug Use: None General Adult EDM: Chief Complaint: ABDOMINAL PAIN HPI: HPI: Patient is a 55-year-old female who [facility] complaining of a 4-day history of nausea with vomiting and diarrhea. Patient states over this time. She has been able to keep very little down and has had equal amounts of diarrhea with vomiting. Patient describes lower abdominal cramping which is particularly worse with diarrhea as well as vomiting. Patient states when she is not experiencing the symptoms her abdominal pain is much less. The patient denies any history of recent travel or sick exposure. She further denies any history of fever, upper abdominal/chest pain or shortness of air. She is awake, alert and nontoxic-appearing Review of Systems: Review of Systems: Constitutional: Denies fever or chills. [] Eyes: Denies change in visual acuity. [] HENT: Denies nasal congestion or sore throat. [] Respiratory: Denies cough or shortness of breath. [] Cardiovascular: Denies chest pain or edema. [] GI: Reports abdominal pain, nausea, vomiting, and diarrhea. She denies hematochezia or melena. [] : Denies dysuria. [] Musculoskeletal: Denies back pain or joint pain. [] Integument: Denies rash. [] Neurologic: Denies headache, focal weakness or sensory changes. [] Endocrine: Denies polyuria or polydipsia. [] Lymphatic: Denies swollen glands. [] Psychiatric: Denies depression or anxiety. [] Current Medications: Current Medications Medications (Trade) Dose Ordered Sig/Tiara Start Time Stop Time Status Last Admin Dose Admin Morphine Sulfate (Morphine Sulfate) 2 mg 1X ONCE 02/03/21 14:00 02/03/21 14:01 DC 02/03/21 14:44 2 MG Ondansetron HCl (Zofran) 4 mg 1X ONCE 02/03/21 14:00 02/03/21 14:01 DC 02/03/21 14:41 4 MG Allergies: Allergies: Allergies Coded Allergies Type Severity Reaction Last Updated Verified Sulfa (Sulfonamide Antibiotics) Allergy Intermediate 04/17/14 No Physical Exam: PE: Constitutional: Uncomfortable appearing. Well developed, well nourished, non- toxic appearance. [] HENT: Normocephalic, atraumatic, bilateral external ears normal, oropharynx moist, no oral exudates, nose normal. [] Eyes: PERRLA, EOMI, conjunctiva normal, no discharge. [] Neck: Normal range of motion, no tenderness, supple, no stridor. [] Cardiovascular:Heart rate regular rhythm, no murmur [] Lungs & Thorax: Bilateral breath sounds clear to auscultation [] Abdomen: Minimal tenderness of the lower abdomen without rebound or guarding. Bowel sounds normal, soft, no masses, no pulsatile masses. [] Skin: Warm, dry, no erythema, no rash. [] Back: No tenderness, no CVA tenderness. [] Extremities: No tenderness, no cyanosis, no clubbing, ROM intact, no edema. [] Neurologic: Alert and oriented X 3, normal motor function, normal sensory function, no focal deficits noted. [] Psychologic: Affect normal, judgement normal, mood normal. [] Current Patient Data: Labs: Laboratory Tests Test 02/03/21 11:55 02/03/21 14:10 Urine Collection Type Unknown Urine Color Yellow Urine Clarity Clear Urine pH 5.5 (<5.0-8.0) Urine Specific Staley >=1.030 (1.000-1.030) Urine Protein Negative mg/dL (NEG-TRACE) Urine Glucose (UA) Negative mg/dL (NEG) Urine Ketones (Stick) Trace mg/dL (NEG) Urine Blood Negative (NEG) Urine Nitrite Positive (NEG) Urine Bilirubin Small (NEG) Urine Urobilinogen Dipstick 0.2 mg/dL (0.2 mg/dL) Urine Leukocyte Esterase Small (NEG) Urine RBC 0 /HPF (0-2) Urine WBC 1-4 /HPF (0-4) Urine Squamous Epithelial Cells Few /LPF Urine Amorphous Sediment Present /HPF Urine Bacteria Moderate /HPF (0-FEW) Urine Mucus Slight /LPF White Blood Count 6.8 x10^3/uL (4.0-11.0) Red Blood Count 4.65 x10^6/uL (3.50-5.40) Hemoglobin 15.8 g/dL (12.0-15.5) H Hematocrit 44.4 % (36.0-47.0) Mean Corpuscular Volume 96 fL (79-100) Mean Corpuscular Hemoglobin 34 pg (25-35) Mean Corpuscular Hemoglobin Concent 35 g/dL (31-37) Red Cell Distribution Width 12.0 % (11.5-14.5) Platelet Count 258 x10^3/uL (140-400) Neutrophils (%) (Auto) 59 % (31-73) Lymphocytes (%) (Auto) 28 % (24-48) Monocytes (%) (Auto) 10 % (0-9) H Eosinophils (%) (Auto) 3 % (0-3) Basophils (%) (Auto) 0 % (0-3) Neutrophils # (Auto) 4.0 x10^3/uL (1.8-7.7) Lymphocytes # (Auto) 1.9 x10^3/uL (1.0-4.8) Monocytes # (Auto) 0.7 x10^3/uL (0.0-1.1) Eosinophils # (Auto) 0.2 x10^3/uL (0.0-0.7) Basophils # (Auto) 0.0 x10^3/uL (0.0-0.2) Sodium Level 142 mmol/L (136-145) Potassium Level 3.4 mmol/L (3.5-5.1) L Chloride Level 103 mmol/L (98-107) Carbon Dioxide Level 26 mmol/L (21-32) Anion Gap 13 (6-14) Blood Urea Nitrogen 10 mg/dL (7-20) Creatinine 0.9 mg/dL (0.6-1.0) Estimated GFR (Cockcroft-Gault) 65.0 BUN/Creatinine Ratio 11 (6-20) Glucose Level 85 mg/dL (70-99) Calcium Level 8.6 mg/dL (8.5-10.1) Total Bilirubin 0.5 mg/dL (0.2-1.0) Aspartate Amino Transferase (AST) 22 U/L (15-37) Alanine Aminotransferase (ALT) 27 U/L (14-59) Alkaline Phosphatase 106 U/L (46-116) Total Protein 7.6 g/dL (6.4-8.2) Albumin 3.8 g/dL (3.4-5.0) Albumin/Globulin Ratio 1.0 (1.0-1.7) Lipase 79 U/L (73-393) Laboratory Tests 02/03/21 14:10 Laboratory Tests 02/03/21 14:10 Vital Signs: Vital Signs Date Time Temp Pulse Resp B/P (MAP) Pulse Ox O2 Delivery O2 Flow Rate FiO2 02/03/21 14:46 74 16 116/73 (87) 96 Room Air 02/03/21 13:50 97.9 97.9 EKG: EKG: [] Heart Score: C/O Chest Pain: No Risk Factors: Risk Factors: DM, Current or recent (<one month) smoker, HTN, HLP, family history of CAD, obesity. Risk Scores: Score 0 - 3: 2.5% MACE over next 6 weeks - Discharge Home Score 4 - 6: 20.3% MACE over next 6 weeks - Admit for Clinical Observation Score 7 - 10: 72.7% MACE over next 6 weeks - Early Invasive Strategies Radiology/Procedures: Radiology/Procedures: [] Course & Med Decision Making: Course & Med Decision Making Pertinent Labs and Imaging studies reviewed. (See chart for details) The patient remains awake, alert and in no acute distress. Upon reevaluation the patient's abdomen is soft, nontender nor distended. I do believe the patient's pain is related to cramping relative to her viral illness. I advised the patient to drink lots of fluids and stay cool during this time. Should she develop any fevers, intractable vomiting and/or diarrhea have advised her to return. The patient understands and has agreed to do so. She is nontoxic- appearing and stable for discharge. Zachary Disclaimer: Zachary Disclaimer: This electronic medical record was generated, in whole or in part, using a voice recognition dictation system. Departure Departure Impression: Primary Impression: Gastroenteritis Additional Impression: UTI (urinary tract infection) Disposition: HOME / SELF CARE / HOMELESS Condition: STABLE Referrals: SHAHRAM GRAFF MD (PCP) Patient Instructions: Urinary Tract Infection, Viral Gastroenteritis Scripts Dicyclomine Hcl (DICYCLOMINE HCL) 10 Mg Capsule 1 CAP PO QID for 3 Days, #12 CAP 11 Refills Prov: TEJINDER RALPH DO 02/03/21 Ondansetron Hcl (ZOFRAN) 4 Mg Tablet 1 TAB PO PRN Q6-8HRS for nausea for 3 Days, #12 TAB Prov: TEJINDER RALPH DO 02/03/21 Nitrofurantoin Monohyd/M-Cryst (MACROBID 100 MG CAPSULE) 100 Mg Capsule 1 CAP PO BID for 7 Days, #14 CAP 0 Refills Prov: TEJINDER RALPH DO 02/03/21 Problem Qualifiers TEJINDER RALPH DO February 03, 2021 13:33
[2021-02-03 13:43] LABS: BILIRUBIN,URINE SMALL (NEG); CLARITY,URINE CLEAR; NITRITE,URINE POSITIVE (NEG); PH,URINE 5.5 (<5.0-8.0); PROTEIN,URINE NEGATIVE (NEG-TRACE); UROBILINOGEN,URINE 0.2 mg/dL (0.2 mg/dL)
[2021-02-03 13:55] LABS: COLOR,URINE YELLOW
[2021-02-03 13:57] LABS: AMORPHOUS SEDIMENT,UR PRESENT /HPF; BACTERIA,URINE MODERATE /HPF (0-FEW); RBC,URINE 0 /HPF (0-2)
[2021-02-03] MEDS ORDERED: MORPHINE SULFATE 2 MG/ML VIAL. IV ONE (14:00)
[2021-02-03] MEDS ORDERED: ONDANSETRON PF 4 MG/2 ML VIAL. IVP ONE (14:00)
[2021-02-03 14:24] LABS: BASO % 0 % (0-3); EOS # 0.2 x10^3/uL (0.0-0.7); EOS % 3 % (0-3); HEMATOCRIT 44.4 % (36.0-47.0); HEMOGLOBIN 15.8 g/dL (12.0-15.5); LYMPH # 1.9 x10^3/uL (1.0-4.8); LYMPH % 28 % (24-48); MEAN CORPUSCULAR HEMOGLOBIN 34 pg (25-35); MEAN CORPUSCULAR HGB CONC 35 g/dL (31-37); MEAN CORPUSCULAR VOLUME 96 fL (79-100); MONO # 0.7 x10^3/uL (0.0-1.1); MONO % 10 % (0-9); NEUT % 59 % (31-73); PLATELET COUNT 258 x10^3/uL (140-400); RED BLOOD COUNT 4.65 x10^6/uL (3.50-5.40); WHITE BLOOD COUNT 6.8 x10^3/uL (4.0-11.0)
[2021-02-03 14:38] LABS: CALCIUM 8.6 mg/dL (8.5-10.1); CREATININE 0.9 mg/dL (0.6-1.0); POTASSIUM 3.4 mmol/L (3.5-5.1)
[2021-02-03 14:45] LABS: ALBUMIN 3.8 g/dL (3.4-5.0); TOTAL BILIRUBIN 0.5 mg/dL (0.2-1.0); TOTAL PROTEIN 7.6 g/dL (6.4-8.2)
[2021-02-03 14:46] VITALS: BP 116/73
[2021-02-03] MEDS ORDERED: NITR100C62 PO (15:14)
[2021-02-03] MEDS ORDERED: DICY10CA3 PO (15:14)
[2021-02-03] MEDS ORDERED: ONDA4TAB7 PO (15:14)
== END 2021-02-03 15:27 | disposition home or self-care (01) ==
LOC: ER 11:46
DX: K52.9 Noninfective gastroenteritis and colitis, unspecified (principal); N39.0 Urinary tract infection, site not specified; Z95.0 Presence of cardiac pacemaker; Z90.49 Acquired absence of other specified parts of digestive tract; Z88.2 Allergy status to sulfonamides
CPT/HCPCS: 36415; 80053; 81001; 83690; 85025; 87086; 96374; 96375; 99284; J2270; J2405

== ENCOUNTER 2021-02-27 09:27 | Observation (INO) | payer OTHER ==
[~2021-02-27] VITALS: Ht 154.9 cm; Wt 70.4 kg
[~2021-02-27 09:27] MED LIST changes: +DICY10CA3 PO; +NITR100C62 PO; +ONDA4TAB7 PO
[2021-02-27] MEDS ORDERED: ONDANSETRON PF 4 MG/2 ML VIAL. IVP ONE (10:00)
[2021-02-27] MEDS ORDERED: fentaNYL PF VIAL 100 MCG/2 ML VIAL IVP ONE (10:00)
[2021-02-27] MEDS ORDERED: IV NORMAL SALINE 1000ML BAG 1,000 ML IV SCH (10:00)
--- NOTE | 2021-02-27 10:06 | PHYS DOC ---
Past Medical History Past Medical History: Arrhythmia, Hepatitis Additional Past Medical Histor: neurocardiogenic syncope, PACER Past Surgical History: Cholecystectomy, Pacemaker Smoking Status: Never Smoker Alcohol Use: None Drug Use: None General Adult EDM: Chief Complaint: ABDOMINAL PAIN HPI: HPI: Patient is a 55 year old female who presents with nausea, vomiting, aching abdominal pain, diarrhea since February 03. She states she was here and they gave her some antinausea medicine and told her she had a gastroenteritis and she did not get any better to come back. She states that she still does not feel any better so she is back today. She rates her pain a 7 out of 10. She denies any blood in her stool or vomit. Denies fever, chest pain, shortness of air, cough, headache, dizziness, vision change, focal weakness. He has a history of neurocardiogenic syncope, pacemaker, cholecystectomy and arrhythmia. Review of Systems: Review of Systems: Constitutional: Denies fever or chills. [] Eyes: Denies change in visual acuity. [] HENT: Denies nasal congestion or sore throat. [] Respiratory: Denies cough or shortness of breath. [] Cardiovascular: Denies chest pain or edema. [] GI: + abdominal pain, +nausea, +vomiting, denies bloody stools or +diarrhea. [] : Denies dysuria. [] Musculoskeletal: Denies back pain or joint pain. [] Integument: Denies rash. [] Neurologic: Denies headache, focal weakness or sensory changes. [] Endocrine: Denies polyuria or polydipsia. [] Lymphatic: Denies swollen glands. [] Psychiatric: Denies depression or anxiety. [] Heart Score: C/O Chest Pain: No Risk Factors: Risk Factors: DM, Current or recent (<one month) smoker, HTN, HLP, family history of CAD, obesity. Risk Scores: Score 0 - 3: 2.5% MACE over next 6 weeks - Discharge Home Score 4 - 6: 20.3% MACE over next 6 weeks - Admit for Clinical Observation Score 7 - 10: 72.7% MACE over next 6 weeks - Early Invasive Strategies Current Medications: Current Medications Medications (Trade) Dose Ordered Sig/Tiara Start Time Stop Time Status Last Admin Dose Admin Ondansetron HCl (Zofran) 4 mg 1X ONCE 02/27/21 10:00 02/27/21 10:01 UNV Sodium Chloride 1,000 ml @ 1,000 mls/hr Q1H 02/27/21 10:00 02/27/21 10:59 Allergies: Allergies: Allergies Coded Allergies Type Severity Reaction Last Updated Verified Sulfa (Sulfonamide Antibiotics) Allergy Intermediate 04/17/14 No Physical Exam: PE: Constitutional: Well developed, well nourished, no acute distress, non-toxic appearance. [] HENT: Normocephalic, atraumatic, bilateral external ears normal, oropharynx moist, no oral exudates, nose normal. [] Eyes: PERRLA, EOMI, conjunctiva normal, no discharge. [] Neck: Normal range of motion, no tenderness, supple, no stridor. [] Cardiovascular:Heart rate regular rhythm, no murmur [] Lungs & Thorax: Bilateral breath sounds clear to auscultation [] Abdomen: Bowel sounds normal, soft, epigastric tenderness, no masses, no pulsatile masses. [] Skin: Warm, dry, no erythema, no rash. [] Back: No tenderness, no CVA tenderness. [] Extremities: No tenderness, no cyanosis, no clubbing, ROM intact, no edema. [] Neurologic: Alert and oriented X 3, normal motor function, normal sensory func tion, no focal deficits noted. [] Psychologic: Affect normal, judgement normal, mood normal. [] EKG: EK by Dr. Yadav is sinus rhythm and no STEMI Radiology/Procedures: Radiology/Procedures: [] Impression: [facility] [address] [place], [place] [id number] IMAGING REPORT Signed PATIENT: BRODIE GUTHRIE ACCOUNT: [id number] : 1965 LOCATION: ER AGE: 55 SEX: F EXAM STATUS: PRE ER ORD. PHYSICIAN: BRIAN PAIGE APRN REASON: vomiting PROCEDURE: PORTABLE CHEST 1V Single view chest dated 02/27/2021 10:13 AM: COMPARISON: 11/21/2019 Clinical Indication: Vomiting. Findings: Single upright portable exam of the chest was performed. Heart and mediastinal contours are stable. Right subclavian pacer in place, unchanged. Lungs are clear. No consolidation or pleural effusion. No pneumothorax. IMPRESSION: No acute radiographic abnormality. Electronically signed by: Alexis Liang MD (02/27/2021 10:13 AM) [id number] DICTATED and SIGNED BY: ALEXIS LIANG MD DATE: 02/27/21 [id number] [facility] [address] [place] [address] IMAGING REPORT Signed PATIENT: BRODIE GUTHRIE ACCOUNT: [id number] : 1965 LOCATION: ER AGE: 55 SEX: F EXAM STATUS: REG ER ORD. PHYSICIAN: BRIAN PAIGE APRN REASON: vomiting, diarrhea, abd pain PROCEDURE: CT ABD PELV W/ IV CONTRST ONLY Examination: CT of the abdomen pelvis with IV contrast HISTORY: History of vomiting, diarrhea, abdominal pain COMPARISON: 06/04/2016 TECHNIQUE: Axial CT images of the abdomen pelvis was performed with IV contrast. Coronal and sagittal reformats are performed. Exposure: One or more of the following individualized dose reduction techniques were utilized for this examination: 1. Automated exposure control 2. Adjustment of the mA and/or kV according to patient size 3. Use of iterative reconstruction technique FINDINGS: Minimal bibasilar lung atelectasis. No evidence of free air identified in the abdomen. The liver, spleen, adrenals grossly appears unremarkable. Cholecystectomy changes identified. The stomach is mildly distended. Questionable minimal fat stranding identified about the pancreas. Few fluid distended small bowel loops identified in the right lower quadrant abdomen with minimal surrounding fat stranding. Liquid stool identified in the colon throughout likely diarrhea. Urinary bladder is mildly distended The bilateral kidneys enhance symmetrically No evidence of lytic bony destructive lesion. Schmorl's node with minimal compression change identified in the superior endplate of T11, L1 vertebral bodies. IMPRESSION: 1. Few fluid distended small bowel loops identified in the right lower quadrant abdomen with minimal surrounding fat stranding could be mild enteritis. 2. Questionable minimal fat stranding identified about the pancreas could be mild pancreatitis. Correlate with lab values. 3. Liquid stool identified in the colon likely diarrhea. 4. Schmorl's node with minimal compression change identified in the superior endplate of T11, L1 vertebral bodies. Electronically signed by: Jose Francisco Pugh MD (02/27/2021 11:24 AM) [id number] DICTATED and SIGNED BY: JOSE FRANCISCO PUGH MD DATE: 02/27/21 [id number] Course & Med Decision Making: Course & Med Decision Making Pertinent Labs and Imaging studies reviewed. (See chart for details) See HPI. Alert and oriented x4. Ambulatory with steady gait. Skin pink warm and dry. Abdomen is soft and slightly tender the epigastric area. Speaks in full clear sentences. Vital signs within normal limits. She states she can get down a little bit of water but it seems to just come back up. [] Dragon Disclaimer: Dragon Disclaimer: This electronic medical record was generated, in whole or in part, using a voice recognition dictation system. Departure Departure Impression: Primary Impression: Enteritis Additional Impression: Pancreatitis Qualified Codes: K85.90 - Acute pancreatitis without necrosis or infection, unspecified Disposition: 09 ADMITTED INPATIENT Admitting Physician: ISABELLA Condition: STABLE Referrals: SHAHRAM GRAFF MD (PCP) BRIAN PAIGE B[employer] LANGUAGES PROFESSOR Feb 27, 2021 10:06
--- NOTE | 2021-02-27 10:16 | RAD ---
Single view chest dated 02/27/2021 10:13 AM: COMPARISON: 11/21/2019 Clinical Indication: Vomiting. Findings: Single upright portable exam of the chest was performed. Heart and mediastinal contours are stable. R ight subclavian pacer in place, unchanged. Lungs are clear. No consolidation or pleural effusion. No pneumothorax. IMPRESSION: No acute radiographic abnormality. Electronically signed by: Alexis Liang MD (02/27/2021 10:13 AM) [id number]
[2021-02-27 10:28] LABS: BASO # 0.1 x10^3/uL (0.0-0.2); BASO % 1 % (0-3); BILIRUBIN,URINE SMALL (NEG); CLARITY,URINE CLOUDY; COLOR,URINE AMBER; EOS # 0.1 x10^3/uL (0.0-0.7); EOS % 2 % (0-3); HEMATOCRIT 39.6 % (36.0-47.0); HEMOGLOBIN 14.1 g/dL (12.0-15.5); LYMPH # 1.6 x10^3/uL (1.0-4.8); LYMPH % 19 % (24-48); MEAN CORPUSCULAR HEMOGLOBIN 35 pg (25-35); MEAN CORPUSCULAR HGB CONC 36 g/dL (31-37); MEAN CORPUSCULAR VOLUME 97 fL (79-100); MONO # 0.5 x10^3/uL (0.0-1.1); MONO % 6 % (0-9); NEUT % 73 % (31-73); NITRITE,URINE NEGATIVE (NEG); PLATELET COUNT 258 x10^3/uL (140-400); PROTEIN,URINE 30 mg/dL (NEG-TRACE); RED CELL DISTRIBUTION WIDTH 12.5 % (11.5-14.5); WHITE BLOOD COUNT 8.2 x10^3/uL (4.0-11.0)
[2021-02-27 10:35] LABS: CALCIUM 8.6 mg/dL (8.5-10.1); CREATININE 0.8 mg/dL (0.6-1.0); GFR 74.5; POTASSIUM 3.7 mmol/L (3.5-5.1)
[2021-02-27 10:41] LABS: ALBUMIN 3.6 g/dL (3.4-5.0); ALBUMIN/GLOBULIN RATIO 1.3 (1.0-1.7); TOTAL BILIRUBIN 0.5 mg/dL (0.2-1.0); TOTAL PROTEIN 6.4 g/dL (6.4-8.2)
[2021-02-27 10:47] LABS: BACTERIA,URINE FEW /HPF (0-FEW); RBC,URINE 0 /HPF (0-2); WBC,URINE OCC /HPF (0-4)
--- NOTE | 2021-02-27 10:48 | EKG ---
[facility] [address] [place] [address] Test Date: 2021-02-27 Test Time: 10:17:56 Pat Name: BRODIE GUTHRIE Department: Room: Gender: F [employer]: : 1965 Requested By: BRIAN PAIGE Order Number: [id number] Reading MD: Measurements Intervals [place] Rate: 71 P: 46 MI: 168 QRS: 10 QRSD: 80 T: 81 QT: 390 QTc: 429 Interpretive Statements SINUS RHYTHM LEFT ATRIAL ABNORMALITY T ABNORMALITY IN HIGH LATERAL LEADS ABNORMAL ECG RI6.01 No previous ECG available for comparison
[2021-02-27] MEDS ORDERED: IOHEXOL 300 MG/ML 100ML VIAL. IV ONE (11:00)
[2021-02-27] MEDS ORDERED: CONTRAST GIVEN. MC PRN (11:15)
--- NOTE | 2021-02-27 11:27 | RAD ---
Examination: CT of the abdomen pelvis with IV contrast HISTORY: History of vomiting, diarrhea, abdominal pain COMPARISON: 06/04/2016 TECHNIQUE: Axial CT images of the abdomen pelvis was performed with IV contrast. Coronal and sagittal reformats are performed. Exposure: One or more of the following individualized dose reduction techniques were utilized for th is examination: 1. Automated exposure control 2. Adjustment of the mA and/or kV according to patien t size 3. Use of iterative reconstruction technique FINDINGS: Minimal bibasilar lung atelectasis. No evidence of free air identified in the abdomen. The liver, spleen, adrenals grossly appears unremarkable. Cholecystectomy changes identified. The sto mach is mildly distended. Questionable minimal fat stranding identified about the pancreas. Few fluid distended small bowel loops identified in the right lower quadrant abdomen with minimal johan rounding fat stranding. Liquid stool identified in the colon throughout likely diarrhea. Urinary bladder is mildly distended The bilateral kidneys enhance symmetrically No evidence of lytic bony destructive lesion. Schmorl's node with minimal compression change identifi ed in the superior endplate of T11, L1 vertebral bodies. IMPRESSION: 1. Few fluid distended small bowel loops identified in the right lower quadrant abdomen with minimal surrounding fat stranding could be mild enteritis. 2. Questionable minimal fat stranding identified about the pancreas could be mild pancreatitis. Herbert elate with lab values. 3. Liquid stool identified in the colon likely diarrhea. 4. Schmorl's node with minimal compression change identified in the superior endplate of T11, L1 neena tebral bodies. Electronically signed by: Jose Francisco Pugh MD (02/27/2021 11:24 AM) [id number]
[2021-02-27] MEDS ORDERED: ONDANSETRON PF 4 MG/2 ML VIAL. IV PRN (12:00)
[2021-02-27] MEDS: IV NORMAL SALINE 1000ML BAG 1,000 ML IV SCH ×2 (12:00→18:23)
[2021-02-27] MEDS: fentaNYL PF VIAL 100 MCG/2 ML VIAL IV PRN ×2 (12:22→20:55)
[2021-02-27] MEDS ORDERED: SENNOSIDES 8.6 MG TABLET PO PRN ×2 (16:15)
[2021-02-27] MEDS ORDERED: ONDANSETRON PF 4 MG/2 ML VIAL. IVP PRN ×2 (16:15)
[2021-02-27] MEDS ORDERED: ACETAMINOPHEN 325 MG TABLET. PO PRN (16:15)
[2021-02-27] MEDS ORDERED: DEXTROSE 50% 25 GM / 50ML DISP.SYRIN. IV PRN (16:15)
[2021-02-27] MEDS ORDERED: DOCUSATE SODIUM 100 MG CAPSULE. PO PRN ×2 (16:15)
--- NOTE | 2021-02-27 16:18 | PDOC1 ---
History and Physical Date of Service: DOS: DATE: 02/27/21 TIME: 16:12 Chief Complaint: Chief Complain: Diarrhea and abdominal pain History of Present Illness: HPI: 55 year old female who presents with nausea, vomiting, aching abdominal pain, diarrhea since February 03. She states she was here and they gave her some antinausea medicine and told her she had a gastroenteritis and she did not get any better to come back. She states that she still does not feel any better so she is back today. She rates her pain a 7 out of 10. She denies any blood in her stool or vomit. Denies fever, chest pain, shortness of air, cough, headache, dizziness, vision change, focal weakness. He has a history of neurocardiogenic syncope, pacemaker, cholecystectomy and arrhythmia. Of note, patient states that she was treated for UTI with Macrobid and completed her regimen by the end of January. Most of her symptoms started immediately after this antibiotic course. Past Medical/Surgical History: PMH/PSH: Past Medical History: Arrhythmia, Hepatitis, neurocardiogenic syncope, Past Surgical History: Cholecystectomy, Pacemaker Allergies: Allergies: Coded Allergies: Sulfa (Sulfonamide Antibiotics) (Unverified Allergy, Intermediate, 04/17/14) Family History: Family History: Reviewed with no relevant findings Social History: Social History: Smoking Status: Never Smoker Alcohol Use: None Drug Use: None Current Medications: Current Medications Current Medications Sodium Chloride 1,000 ml @ 1,000 mls/hr Q1H IV Last administered on 02/27/21at 10:17; Start 02/27/21 at 10:00; Stop 02/27/21 at 10:59; Status DC Ondansetron HCl (Zofran) 4 mg 1X ONCE IVP Last administered on 02/27/21at 1 0:16; Start 02/27/21 at 10:00; Stop 02/27/21 at 10:02; Status DC Fentanyl Citrate (Fentanyl 2ml Vial) 50 mcg 1X ONCE IVP Last administered on 02/27/21at 10:16; Start 02/27/21 at 10:00; Stop 02/27/21 at 10:04; Status DC Iohexol (Omnipaque 300 Mg/ml) 75 ml 1X ONCE IV Last administered on 02/27/21at 11:06; Start 02/27/21 at 11:00; Stop 02/27/21 at 11:01; Status DC Info (CONTRAST GIVEN -- Rx MONITORING) 1 each PRN DAILY PRN MC SEE COMMENTS; Start 02/27/21 at 11:15; Stop 03/01/21 at 11:14 Ondansetron HCl (Zofran) 4 mg PRN Q8HRS PRN IV NAUSEA/VOMITING; Start 02/27/21 at 12:00; Stop 02/28/21 at 11:59 Fentanyl Citrate (Fentanyl 2ml Vial) 50 mcg PRN Q1HR PRN IV PAIN Last administered on 02/27/21at 12:22; Start 02/27/21 at 12:00; Stop 02/28/21 at 11:59 Sodium Chloride 1,000 ml @ 150 mls/hr Q6H40M IV ; Start 02/27/21 at 12:00; Stop 02/28/21 at 11:59 Active Scripts Active Dicyclomine Hcl 10 Mg Capsule 1 Cap PO QID 3 Days Zofran (Ondansetron Hcl) 4 Mg Tablet 1 Tab PO PRN Q6-8HRS 3 Days Macrobid 100 Mg Capsule (Nitrofurantoin Monohyd/M-Cryst) 100 Mg Capsule 1 Cap PO BID 7 Days Tamiflu (Oseltamivir Phosphate) 75 Mg Capsule 1 Cap PO BID Proair Hfa Inhaler (Albuterol Sulfate) 8.5 Gm Hfa.aer.ad 1-2 Puff INH PRN Q6HRS PRN 10 Days Proair Hfa (Albuterol Sulfate) 8.5 Gm Hfa.aer.ad 1 Puff INH PRN Q6HRS PRN Prednisone 50 Mg Tablet 1 Tab PO DAILY Hydrocodone-Chlorpheniram Susp (Hydrocodone/Chlorphen Polis) 5 Ml Sharonda.er.12h 5 Ml PO PRN Q12HR PRN Zithromax (Azithromycin) 250 Mg Tablet 1 Pkg PO UD Tessalon Perle (Benzonatate) 100 Mg Capsule 1 Cap PO TID PRN Zofran Odt (Ondansetron) 4 Mg Tab.rapdis 1 Tab SL Q8HRS PRN Ibuprofen 400 Mg Tablet 400 Mg PO PRN Q6HRS PRN [Acetaminophen] 500 MG Tablet 500 Mg PO PRN Q6HRS PRN Naprosyn (Naproxen) 500 Mg Tablet 500 Mg PO BIDWMEALS Lidoderm (Lidocaine) 1 Patch Patch 1 Patch TD DAILY ROS: Review of Systems Review of System REVIEW OF SYSTEMS: GENERAL: Denies weakness SKIN: No bruising, hair changes or rashes. EYES: No blurred, double or loss of vision. NOSE AND THROAT: No history of nosebleeds, hoarseness or sore throat. HEART: No history of palpitations, chest pain or shortness of breath on exertion. LUNGS: Denies cough, hemoptysis, wheezing or shortness of breath. GASTROINTESTINAL: Denies changes in appetite, nausea, vomiting, diarrhea or constipation. GENITOURINARY: No history of frequency, urgency, hesitancy or nocturia. NEUROLOGIC: Denies history of numbness, tingling, or tremor. PSYCHIATRIC: No history of panic, anxiety or depression. ENDOCRINE: No history of heat or cold intolerance, polyuria or polydipsia. EXTREMITIES: Denies joint pain, pain on walking or stiffness. Physical Exam: Vital Signs: Vital Signs Date Time Temp Pulse Resp B/P (MAP) Pulse Ox O2 Delivery O2 Flow Rate FiO2 02/27/21 14:14 65 16 118/59 (78) 98 Room Air 02/27/21 09:30 97.7 97.7 Physcial Exam: GEN: No apparent distress. Alert and oriented HEENT: Normal cephalic, atraumatic, external auditory canals are patent EYES: Extraocular muscles are intact, pupil are equally round and reactive to light and accommodation MUSCULOSKELETAL: Well developed , well nourished, good range of motion ENDOCRINE: No thyromegaly was palpated LYMPHATICS: No cervical chain or axillary nodes were noted HEMATOPOIETIC: No bruising NECK: Supple, no JVD, no thyromegaly was noted LUNGS: Clear to auscultation in all lung simeon without rhonchi or wheezing HEART: RRR, S!, S2 present. Peripheral pulses intact, no obvious murmurs noted ABDOMEN: Soft, nontender. Positive bowel sounds, no organomegaly, normal bowel sounds EXTREMITIES: Without clubbing, cyanosis, or edema. Pedal pulses intact. Negative Homans sign NEUROLOGIC: Normal speech and tone. A&O x 3, moves all extremities, no obvious focal deficits PSYCHIATRIC: Normal affect, normal mood. Stable SKIN: No ulcerations or rashes, good skin turgor, no jaundice VASCULAR: Good capillary refill, neurovascular bundle appears to be intact Labs: Labs: Laboratory Tests Test 02/27/21 10:15 White Blood Count 8.2 x10^3/uL (4.0-11.0) Red Blood Count 4.10 x10^6/uL (3.50-5.40) Hemoglobin 14.1 g/dL (12.0-15.5) Hematocrit 39.6 % (36.0-47.0) Mean Corpuscular Volume 97 fL (79-100) Mean Corpuscular Hemoglobin 35 pg (25-35) Mean Corpuscular Hemoglobin Concent 36 g/dL (31-37) Red Cell Distribution Width 12.5 % (11.5-14.5) Platelet Count 258 x10^3/uL (140-400) Neutrophils (%) (Auto) 73 % (31-73) Lymphocytes (%) (Auto) 19 % (24-48) Monocytes (%) (Auto) 6 % (0-9) Eosinophils (%) (Auto) 2 % (0-3) Basophils (%) (Auto) 1 % (0-3) Neutrophils # (Auto) 6.0 x10^3/uL (1.8-7.7) Lymphocytes # (Auto) 1.6 x10^3/uL (1.0-4.8) Monocytes # (Auto) 0.5 x10^3/uL (0.0-1.1) Eosinophils # (Auto) 0.1 x10^3/uL (0.0-0.7) Basophils # (Auto) 0.1 x10^3/uL (0.0-0.2) Urine Collection Type Unknown Urine Color Heidy Urine Clarity Cloudy Urine pH 6.0 (<5.0-8.0) Urine Specific [place] >=1.030 (1.000-1.030) Urine Protein 30 mg/dL (NEG-TRACE) Urine Glucose (UA) Negative mg/dL (NEG) Urine Ketones (Stick) Trace mg/dL (NEG) Urine Blood Negative (NEG) Urine Nitrite Negative (NEG) Urine Bilirubin Small (NEG) Urine Urobilinogen Dipstick 1.0 mg/dL (0.2 mg/dL) Urine Leukocyte Esterase Small (NEG) Urine RBC 0 /HPF (0-2) Urine WBC Occ /HPF (0-4) Urine Squamous Epithelial Cells Few /LPF Urine Bacteria Few /HPF (0-FEW) Urine Mucus Slight /LPF Sodium Level 141 mmol/L (136-145) Potassium Level 3.7 mmol/L (3.5-5.1) Chloride Level 107 mmol/L (98-107) Carbon Dioxide Level 26 mmol/L (21-32) Anion Gap 8 (6-14) Blood Urea Nitrogen 8 mg/dL (7-20) Creatinine 0.8 mg/dL (0.6-1.0) Estimated GFR (Cockcroft-Gault) 74.5 BUN/Creatinine Ratio 10 (6-20) Glucose Level 86 mg/dL (70-99) Calcium Level 8.6 mg/dL (8.5-10.1) Total Bilirubin 0.5 mg/dL (0.2-1.0) Aspartate Amino Transf (AST/SGOT) 23 U/L (15-37) Alanine Aminotransferase (ALT/SGPT) 29 U/L (14-59) Alkaline Phosphatase 89 U/L (46-116) Troponin I Quantitative < 0.017 ng/mL (0.000-0.055) Total Protein 6.4 g/dL (6.4-8.2) Albumin 3.6 g/dL (3.4-5.0) Albumin/Globulin Ratio 1.3 (1.0-1.7) Lipase 77 U/L (73-393) Laboratory Tests Test 02/27/21 10:15 White Blood Count 8.2 x10^3/uL (4.0-11.0) Red Blood Count 4.10 x10^6/uL (3.50-5.40) Hemoglobin 14.1 g/dL (12.0-15.5) Hematocrit 39.6 % (36.0-47.0) Mean Corpuscular Volume 97 fL (79-100) Mean Corpuscular Hemoglobin 35 pg (25-35) Mean Corpuscular Hemoglobin Concent 36 g/dL (31-37) Red Cell Distribution Width 12.5 % (11.5-14.5) Platelet Count 258 x10^3/uL (140-400) Neutrophils (%) (Auto) 73 % (31-73) Lymphocytes (%) (Auto) 19 % (24-48) Monocytes (%) (Auto) 6 % (0-9) Eosinophils (%) (Auto) 2 % (0-3) Basophils (%) (Auto) 1 % (0-3) Neutrophils # (Auto) 6.0 x10^3/uL (1.8-7.7) Lymphocytes # (Auto) 1.6 x10^3/uL (1.0-4.8) Monocytes # (Auto) 0.5 x10^3/uL (0.0-1.1) Eosinophils # (Auto) 0.1 x10^3/uL (0.0-0.7) Basophils # (Auto) 0.1 x10^3/uL (0.0-0.2) Urine Collection Type Unknown Urine Color Heidy Urine Clarity Cloudy Urine pH 6.0 (<5.0-8.0) Urine Specific [place] >=1.030 (1.000-1.030) Urine Protein 30 mg/dL (NEG-TRACE) Urine Glucose (UA) Negative mg/dL (NEG) Urine Ketones (Stick) Trace mg/dL (NEG) Urine Blood Negative (NEG) Urine Nitrite Negative (NEG) Urine Bilirubin Small (NEG) Urine Urobilinogen Dipstick 1.0 mg/dL (0.2 mg/dL) Urine Leukocyte Esterase Small (NEG) Urine RBC 0 /HPF (0-2) Urine WBC Occ /HPF (0-4) Urine Squamous Epithelial Cells Few /LPF Urine Bacteria Few /HPF (0-FEW) Urine Mucus Slight /LPF Sodium Level 141 mmol/L (136-145) Potassium Level 3.7 mmol/L (3.5-5.1) Chloride Level 107 mmol/L (98-107) Carbon Dioxide Level 26 mmol/L (21-32) Anion Gap 8 (6-14) Blood Urea Nitrogen 8 mg/dL (7-20) Creatinine 0.8 mg/dL (0.6-1.0) Estimated GFR (Cockcroft-Gault) 74.5 BUN/Creatinine Ratio 10 (6-20) Glucose Level 86 mg/dL (70-99) Calcium Level 8.6 mg/dL (8.5-10.1) Total Bilirubin 0.5 mg/dL (0.2-1.0) Aspartate Amino Transf (AST/SGOT) 23 U/L (15-37) Alanine Aminotransferase (ALT/SGPT) 29 U/L (14-59) Alkaline Phosphatase 89 U/L (46-116) Troponin I Quantitative < 0.017 ng/mL (0.000-0.055) Total Protein 6.4 g/dL (6.4-8.2) Albumin 3.6 g/dL (3.4-5.0) Albumin/Globulin Ratio 1.3 (1.0-1.7) Lipase 77 U/L (73-393) Images: Images CXR Impression: 1. No acute cardiopulmonary process. CT ABD/PELVIS PROCEDURE: CT ABD PELV W/ IV CONTRST ONLY IMPRESSION: 1. Few fluid distended small bowel loops identified in the right lower quadrant abdomen with minimal surrounding fat stranding could be mild enteritis. 2. Questionable minimal fat stranding identified about the pancreas could be mild pancreatitis. Correlate with lab values. 3. Liquid stool identified in the colon likely diarrhea. 4. Schmorl's node with minimal compression change identified in the superior endplate of T11, L1 vertebral bodies. Assessment/Plan Assessment/Plan Acute abdominal pain due to enteritis Possible pancreatitis Volume depletion Admit to medicine for further management GI consult Continue IV fluid Clear liquid diet and advance as tolerated Pending stool studies Ambulation for DVT prophylaxis Protonix GI prophylaxis ADA diet Full code Discussed with RN and SW Disposition inpatient management as above Surrogate decision maker is Justifications for Admission Other Justification JOON ROSE MD Feb 27, 2021 16:18
[2021-02-27 16:30] VITALS: BP 124/68
[2021-02-27 19:00] VITALS: BP 110/64
[2021-02-27 23:08] VITALS: BP 107/66
[2021-02-28] MEDS: IV NORMAL SALINE 1000ML BAG 1,000 ML IV SCH ×2 (00:55→08:00)
[2021-02-28 02:50] VITALS: BP 114/62
[2021-02-28 04:41] LABS: BASO # 0.1 x10^3/uL (0.0-0.2); BASO % 1 % (0-3); EOS # 0.2 x10^3/uL (0.0-0.7); EOS % 3 % (0-3); HEMATOCRIT 35.6 % (36.0-47.0); HEMOGLOBIN 12.5 g/dL (12.0-15.5); LYMPH # 2.2 x10^3/uL (1.0-4.8); LYMPH % 35 % (24-48); MEAN CORPUSCULAR HEMOGLOBIN 34 pg (25-35); MEAN CORPUSCULAR HGB CONC 35 g/dL (31-37); MEAN CORPUSCULAR VOLUME 98 fL (79-100); MONO # 0.5 x10^3/uL (0.0-1.1); MONO % 8 % (0-9); NEUT # 3.4 x10^3/uL (1.8-7.7); NEUT % 54 % (31-73); PLATELET COUNT 210 x10^3/uL (140-400); RED BLOOD COUNT 3.63 x10^6/uL (3.50-5.40); RED CELL DISTRIBUTION WIDTH 12.5 % (11.5-14.5); WHITE BLOOD COUNT 6.4 x10^3/uL (4.0-11.0)
[2021-02-28 04:57] LABS: CALCIUM 7.9 mg/dL (8.5-10.1); CREATININE 0.9 mg/dL (0.6-1.0); MAGNESIUM 1.8 mg/dL (1.8-2.4); PHOSPHORUS 3.1 mg/dL (2.6-4.7); POTASSIUM 3.3 mmol/L (3.5-5.1)
[2021-02-28 07:00] VITALS: BP 116/70
[2021-02-28] MEDS: fentaNYL PF VIAL 100 MCG/2 ML VIAL IV PRN (08:38)
[2021-02-28 11:00] VITALS: BP 118/72
--- NOTE | 2021-02-28 11:57 | PDOC ---
[facility] PROGRESS NOTE Date of Service DOS: DATE: 02/28/21 TIME: 11:55 Chief Complaint Chief Complaint Acute abdominal pain due to enteritis Possible pancreatitis Volume depletion History of Present Illness History of Present Illness 02/28/2021 Patient seen and examined Her is present Discussed with RN Chart reviewed Vitals/I&O Vitals/I&O: Vital Signs Date Time Temp Pulse Resp B/P (MAP) Pulse Ox O2 Delivery O2 Flow Rate FiO2 02/28/21 11:00 98.4 68 18 118/72 (87) 96 Room Air 98.4 I & O 02/27/21 02/27/21 02/28/21 15:00 23:00 07:00 Intake Total 1000 ml 0 ml Balance 1000 ml 0 ml Physical Exam General: Alert, Oriented X3, Other (Up walking to the bathroom with her IV pole) Heart: Regular rate Lungs: Clear Abdomen: Normal bowel sounds, Other (Slightly tender) Extremities: No clubbing Skin: No rashes Labs Labs: Laboratory Tests Test 02/28/21 04:00 White Blood Count 6.4 x10^3/uL (4.0-11.0) Red Blood Count 3.63 x10^6/uL (3.50-5.40) Hemoglobin 12.5 g/dL (12.0-15.5) Hematocrit 35.6 % (36.0-47.0) Mean Corpuscular Volume 98 fL (79-100) Mean Corpuscular Hemoglobin 34 pg (25-35) Mean Corpuscular Hemoglobin Concent 35 g/dL (31-37) Red Cell Distribution Width 12.5 % (11.5-14.5) Platelet Count 210 x10^3/uL (140-400) Neutrophils (%) (Auto) 54 % (31-73) Lymphocytes (%) (Auto) 35 % (24-48) Monocytes (%) (Auto) 8 % (0-9) Eosinophils (%) (Auto) 3 % (0-3) Basophils (%) (Auto) 1 % (0-3) Neutrophils # (Auto) 3.4 x10^3/uL (1.8-7.7) Lymphocytes # (Auto) 2.2 x10^3/uL (1.0-4.8) Monocytes # (Auto) 0.5 x10^3/uL (0.0-1.1) Eosinophils # (Auto) 0.2 x10^3/uL (0.0-0.7) Basophils # (Auto) 0.1 x10^3/uL (0.0-0.2) Sodium Level 146 mmol/L (136-145) Potassium Level 3.3 mmol/L (3.5-5.1) Chloride Level 112 mmol/L (98-107) Carbon Dioxide Level 23 mmol/L (21-32) Anion Gap 11 (6-14) Blood Urea Nitrogen 7 mg/dL (7-20) Creatinine 0.9 mg/dL (0.6-1.0) Estimated GFR (Cockcroft-Gault) 65.0 Glucose Level 76 mg/dL (70-99) Calcium Level 7.9 mg/dL (8.5-10.1) Phosphorus Level 3.1 mg/dL (2.6-4.7) Magnesium Level 1.8 mg/dL (1.8-2.4) Assessment and Plan Assessmemt and Plan Problems Medical Problems: (1) Enteritis Status: Acute (2) Pancreatitis Status: Acute Acute abdominal pain due to enteritis Possible pancreatitis Volume depletion Plan IV fluids Trend labs Await GI input Home meds DVT prophylaxis Full code Bowel rest Stool studies Comment Review of Relevant I have reviewed the following items simona (where applicable) has been applied. Medications: Current Medications Medications (Trade) Dose Ordered Sig/Tiara Route PRN Reason Start Time Stop Time Status Last Admin Dose Admin Fentanyl Citrate (Fentanyl 2ml Vial) 50 mcg PRN Q1HR PRN IV PAIN 02/27/21 12:00 02/28/21 11:59 02/28/21 08:38 Sodium Chloride 1,000 ml @ 150 mls/hr Q6H40M IV 02/27/21 12:00 02/28/21 11:59 02/28/21 08:00 Ondansetron HCl (Zofran) 4 mg PRN Q6HRS PRN IVP NAUSEA/VOMITING 02/27/21 16:15 02/28/21 08:38 Justifications for Admission Other Justification DARSHANA MCCRACKEN III DO Feb 28, 2021 11:57
--- NOTE | 2021-02-28 12:48 | PDOC2 ---
CONSULT Date of Consult Date of Consult DATE: 02/28/21 TIME: 12:47 Reason for Consult Reason for Consult: Recurrent N/V/ hx of gastroparesis Past Medical History Cardiovascular: Syncope Pulmonary: No pertinent hx CENTRAL NERVOUS SYSTEM: Other GI: No pertinent hx Heme/Onc: No pertinent hx Hepatobiliary: No pertinent hx Psych: No pertinent hx Musculoskeletal: Other Rheumatologic: No pertinent hx Infectious disease: No pertinent hx Renal/: No pertinent hx Endocrine: No pertinent hx Past Surgical History Past Surgical History: Pacemaker, Cholecystectomy, Tubal Ligation, Tonsillectomy Family History Family History: Heart Disease, Hypertension Social History ALCOHOL: none Drugs: None Lives: with Family Domestic Violence: Neg Current Problem List Problem List Problems Medical Problems: (1) Enteritis Status: Acute (2) Pancreatitis Status: Acute Current Medications Current Medications Current Medications Sodium Chloride 1,000 ml @ 1,000 mls/hr Q1H IV Last administered on 02/27/21at 10:17; Start 02/27/21 at 10:00; Stop 02/27/21 at 10:59; Status DC Ondansetron HCl (Zofran) 4 mg 1X ONCE IVP Last administered on 02/27/21at 10:16; Start 02/27/21 at 10:00; Stop 02/27/21 at 10:02; Status DC Fentanyl Citrate (Fentanyl 2ml Vial) 50 mcg 1X ONCE IVP Last administered on 02/27/21at 10:16; Start 02/27/21 at 10:00; Stop 02/27/21 at 10:04; Status DC Iohexol (Omnipaque 300 Mg/ml) 75 ml 1X ONCE IV Last administered on 02/27/21at 11:06; Start 02/27/21 at 11:00; Stop 02/27/21 at 11:01; Status DC Info (CONTRAST GIVEN -- Rx MONITORING) 1 each PRN DAILY PRN MC SEE COMMENTS; Start 02/27/21 at 11:15; Stop 03/01/21 at 11:14 Ondansetron HCl (Zofran) 4 mg PRN Q8HRS PRN IV NAUSEA/VOMITING; Start 02/27/21 at 12:00; Stop 02/28/21 at 11:59; Status DC Fentanyl Citrate (Fentanyl 2ml Vial) 50 mcg PRN Q1HR PRN IV PAIN Last administered on 02/28/21at 08:38; Start 02/27/21 at 12:00; Stop 02/28/21 at 11:59; Status DC Sodium Chloride 1,000 ml @ 150 mls/hr Q6H40M IV Last administered on 02/28/21at 08:00; Start 02/27/21 at 12:00; Stop 02/28/21 at 11:59; Status DC Sennosides (Senna) 17.2 mg PRN BID PRN PO CONSTIPATION; Start 02/27/21 at 16:15 Docusate Sodium (Colace) 100 mg PRN DAILY PRN PO HARD STOOLS; Start 02/27/21 at 16:15 Ondansetron HCl (Zofran) 4 mg PRN Q6HRS PRN IVP NAUSEA/VOMITING Last administered on 02/28/21at 08:38; Start 02/27/21 at 16:15 Dextrose (Dextrose 50%-Water Syringe) 12.5 gm PRN Q15MIN PRN IV SEE COMMENTS; Start 02/27/21 at 16:15 Acetaminophen (Tylenol) 650 mg PRN Q4HRS PRN PO TEMP OVER 100.4F OR MILD PAIN; Start 02/27/21 at 16:15 Sennosides (Senna) 17.2 mg PRN BID PRN PO CONSTIPATION; Start 02/27/21 at 16:15 Docusate Sodium (Colace) 100 mg PRN DAILY PRN PO HARD STOOLS; Start 02/27/21 at 16:15 Ondansetron HCl (Zofran) 4 mg PRN Q6HRS PRN IVP NAUSEA/VOMITING; Start 02/27/21 at 16:15 Active Scripts Active Dicyclomine Hcl 10 Mg Capsule 1 Cap PO QID 3 Days Zofran (Ondansetron Hcl) 4 Mg Tablet 1 Tab PO PRN Q6-8HRS 3 Days Macrobid 100 Mg Capsule (Nitrofurantoin Monohyd/M-Cryst) 100 Mg Capsule 1 Cap PO BID 7 Days Tamiflu (Oseltamivir Phosphate) 75 Mg Capsule 1 Cap PO BID Proair Hfa Inhaler (Albuterol Sulfate) 8.5 Gm Hfa.aer.ad 1-2 Puff INH PRN Q6HRS PRN 10 Days Proair Hfa (Albuterol Sulfate) 8.5 Gm Hfa.aer.ad 1 Puff INH PRN Q6HRS PRN Prednisone 50 Mg Tablet 1 Tab PO DAILY Hydrocodone-Chlorpheniram Susp (Hydrocodone/Chlorphen Polis) 5 Ml Sharonda.er.12h 5 Ml PO PRN Q12HR PRN Zithromax (Azithromycin) 250 Mg Tablet 1 Pkg PO UD Tessalon Perle (Benzonatate) 100 Mg Capsule 1 Cap PO TID PRN Zofran Odt (Ondansetron) 4 Mg Tab.rapdis 1 Tab SL Q8HRS PRN Ibuprofen 400 Mg Tablet 400 Mg PO PRN Q6HRS PRN [Acetaminophen] 500 MG Tablet 500 Mg PO PRN Q6HRS PRN Naprosyn (Naproxen) 500 Mg Tablet 500 Mg PO BIDWMEALS Lidoderm (Lidocaine) 1 Patch Patch 1 Patch TD DAILY Allergies Allergies: Coded Allergies: Sulfa (Sulfonamide Antibiotics) (Unverified Allergy, Intermediate, 04/17/14) Vitals VITALS Vital Signs Date Time Temp Pulse Resp B/P (MAP) Pulse Ox O2 Delivery O2 Flow Rate FiO2 02/28/21 11:00 98.4 68 18 118/72 (87) 96 Room Air 98.4 Labs Labs Laboratory Tests Test 02/27/21 10:15 02/28/21 04:00 White Blood Count 8.2 x10^3/uL (4.0-11.0) 6.4 x10^3/uL (4.0-11.0) Red Blood Count 4.10 x10^6/uL (3.50-5.40) 3.63 x10^6/uL (3.50-5.40) Hemoglobin 14.1 g/dL (12.0-15.5) 12.5 g/dL (12.0-15.5) Hematocrit 39.6 % (36.0-47.0) 35.6 % (36.0-47.0) Mean Corpuscular Volume 97 fL (79-100) 98 fL (79-100) Mean Corpuscular Hemoglobin 35 pg (25-35) 34 pg (25-35) Mean Corpuscular Hemoglobin Concent 36 g/dL (31-37) 35 g/dL (31-37) Red Cell Distribution Width 12.5 % (11.5-14.5) 12.5 % (11.5-14.5) Platelet Count 258 x10^3/uL (140-400) 210 x10^3/uL (140-400) Neutrophils (%) (Auto) 73 % (31-73) 54 % (31-73) Lymphocytes (%) (Auto) 19 % (24-48) 35 % (24-48) Monocytes (%) (Auto) 6 % (0-9) 8 % (0-9) Eosinophils (%) (Auto) 2 % (0-3) 3 % (0-3) Basophils (%) (Auto) 1 % (0-3) 1 % (0-3) Neutrophils # (Auto) 6.0 x10^3/uL (1.8-7.7) 3.4 x10^3/uL (1.8-7.7) Lymphocytes # (Auto) 1.6 x10^3/uL (1.0-4.8) 2.2 x10^3/uL (1.0-4.8) Monocytes # (Auto) 0.5 x10^3/uL (0.0-1.1) 0.5 x10^3/uL (0.0-1.1) Eosinophils # (Auto) 0.1 x10^3/uL (0.0-0.7) 0.2 x10^3/uL (0.0-0.7) Basophils # (Auto) 0.1 x10^3/uL (0.0-0.2) 0.1 x10^3/uL (0.0-0.2) Urine Collection Type Unknown Urine Color Heidy Urine Clarity Cloudy Urine pH 6.0 (<5.0-8.0) Urine Specific [place] >=1.030 (1.000-1.030) Urine Protein 30 mg/dL (NEG-TRACE) Urine Glucose (UA) Negative mg/dL (NEG) Urine Ketones (Stick) Trace mg/dL (NEG) Urine Blood Negative (NEG) Urine Nitrite Negative (NEG) Urine Bilirubin Small (NEG) Urine Urobilinogen Dipstick 1.0 mg/dL (0.2 mg/dL) Urine Leukocyte Esterase Small (NEG) Urine RBC 0 /HPF (0-2) Urine WBC Occ /HPF (0-4) Urine Squamous Epithelial Cells Few /LPF Urine Bacteria Few /HPF (0-FEW) Urine Mucus Slight /LPF Sodium Level 141 mmol/L (136-145) 146 mmol/L (136-145) Potassium Level 3.7 mmol/L (3.5-5.1) 3.3 mmol/L (3.5-5.1) Chloride Level 107 mmol/L (98-107) 112 mmol/L (98-107) Carbon Dioxide Level 26 mmol/L (21-32) 23 mmol/L (21-32) Anion Gap 8 (6-14) 11 (6-14) Blood Urea Nitrogen 8 mg/dL (7-20) 7 mg/dL (7-20) Creatinine 0.8 mg/dL (0.6-1.0) 0.9 mg/dL (0.6-1.0) Estimated GFR (Cockcroft-Gault) 74.5 65.0 BUN/Creatinine Ratio 10 (6-20) Glucose Level 86 mg/dL (70-99) 76 mg/dL (70-99) Calcium Level 8.6 mg/dL (8.5-10.1) 7.9 mg/dL (8.5-10.1) Total Bilirubin 0.5 mg/dL (0.2-1.0) Aspartate Amino Transf (AST/SGOT) 23 U/L (15-37) Alanine Aminotransferase (ALT/SGPT) 29 U/L (14-59) Alkaline Phosphatase 89 U/L (46-116) Troponin I Quantitative < 0.017 ng/mL (0.000-0.055) Total Protein 6.4 g/dL (6.4-8.2) Albumin 3.6 g/dL (3.4-5.0) Albumin/Globulin Ratio 1.3 (1.0-1.7) Lipase 77 U/L (73-393) Phosphorus Level 3.1 mg/dL (2.6-4.7) Magnesium Level 1.8 mg/dL (1.8-2.4) Laboratory Tests Test 02/28/21 04:00 White Blood Count 6.4 x10^3/uL (4.0-11.0) Red Blood Count 3.63 x10^6/uL (3.50-5.40) Hemoglobin 12.5 g/dL (12.0-15.5) Hematocrit 35.6 % (36.0-47.0) Mean Corpuscular Volume 98 fL (79-100) Mean Corpuscular Hemoglobin 34 pg (25-35) Mean Corpuscular Hemoglobin Concent 35 g/dL (31-37) Red Cell Distribution Width 12.5 % (11.5-14.5) Platelet Count 210 x10^3/uL (140-400) Neutrophils (%) (Auto) 54 % (31-73) Lymphocytes (%) (Auto) 35 % (24-48) Monocytes (%) (Auto) 8 % (0-9) Eosinophils (%) (Auto) 3 % (0-3) Basophils (%) (Auto) 1 % (0-3) Neutrophils # (Auto) 3.4 x10^3/uL (1.8-7.7) Lymphocytes # (Auto) 2.2 x10^3/uL (1.0-4.8) Monocytes # (Auto) 0.5 x10^3/uL (0.0-1.1) Eosinophils # (Auto) 0.2 x10^3/uL (0.0-0.7) Basophils # (Auto) 0.1 x10^3/uL (0.0-0.2) Sodium Level 146 mmol/L (136-145) Potassium Level 3.3 mmol/L (3.5-5.1) Chloride Level 112 mmol/L (98-107) Carbon Dioxide Level 23 mmol/L (21-32) Anion Gap 11 (6-14) Blood Urea Nitrogen 7 mg/dL (7-20) Creatinine 0.9 mg/dL (0.6-1.0) Estimated GFR (Cockcroft-Gault) 65.0 Glucose Level 76 mg/dL (70-99) Calcium Level 7.9 mg/dL (8.5-10.1) Phosphorus Level 3.1 mg/dL (2.6-4.7) Magnesium Level 1.8 mg/dL (1.8-2.4) Assessment/Plan Assessment/Plan N/V- s/p katharine with gastroparesis by history, differential includes: para- esophageal hernia, malrotation, internal hernia, adhesions, and/or stricture. Plan SB series in am advance diet as tolerated Full note dictated SUMA POPE MD Feb 28, 2021 12:48
[2021-02-28 15:00] VITALS: BP 113/68
[2021-02-28 19:00] VITALS: BP 112/63
--- NOTE | 2021-02-28 21:42 | CONS ---
DATE OF CONSULTATION: 02/28/2021 GASTROENTEROLOGY CONSULTATION REASON FOR CONSULTATION: Recurrent nausea and vomiting. HISTORY OF PRESENT ILLNESS: A 55-year-old female with past medical history significant for cholecystectomy, pacemaker placement for neurocardiogenic syncope and gastroparesis. She was admitted to [facility] for nausea, vomiting and diarrhea. She states she has had the nausea and vomiting intermittently through the years, lasting for several days at a time. Previous gastric emptying study approximately 7 years ago did reveal gastroparesis. She has not undergone recent endoscopy in discussion with the patient. Hemoglobin, however, is normal at 12.5. There is no family history of colon polyps or colon cancer. Imaging on admission including a CT scan of the abdomen and pelvis did reveal few fluid distended small bowel loops in the right lower quadrant. No evidence of free air, mass, obstruction or additional pathology. With continued issues, consultation is requested for further management and care. PAST MEDICAL HISTORY: Status post cholecystectomy, arrhythmia, neurocardiogenic syncope. PAST SURGICAL HISTORY: Status post pacemaker placement. ALLERGIES: SULFA. MEDICATIONS: Presently include Zofran, senna, Tylenol. SOCIAL HISTORY: Nonsmoker, nondrinker. FAMILY HISTORY: Noncontributory. REVIEW OF SYSTEMS: Per records. PHYSICAL EXAMINATION: VITAL SIGNS: Temperature 98.4, pulse 60, respirations 18, blood pressure is 118/72. HEENT: Reveals normocephalic, atraumatic head. Pupils and extraocular muscles not tested. Sclerae are anicteric. NECK: Supple. LUNGS: Clear anteriorly. CARDIOVASCULAR: Reveals an S1, S2, without S3, S4 or appreciable murmur. ABDOMEN: Reveals a soft abdomen, normal bowel sounds with mild epigastric tenderness to palpation. EXTREMITIES: Reveals no cyanosis, clubbing or edema. LABORATORY DATA: Hemoglobin 12.5, hematocrit 35.6, white count 6.4, platelet count is 210,000. Sodium 146, potassium 3.3, chloride 112, BUN 7, creatinine 0.9, glucose 76, calcium 7.9, phosphorus 3.1, magnesium is 1.8, total bilirubin 0.5, AST 23, ALT 29, alkaline phosphatase 89, total protein 6.4, albumin 3.6, lipase 77. IMPRESSION: Recurrent nausea, vomiting, abdominal pain, status post cholecystectomy with gastroparesis. Differential includes malrotation paraesophageal hernia with small bowel stricture, adhesions. Therefore, I recommended a small bowel series in the interim, her diet will be advanced as tolerated. I would like to thank Dr. Mcgarry for allowing us to consult and participate in this patient's care. TOBI DR: Ivana TID: [id number]
[2021-02-28 23:00] VITALS: BP 120/69
[2021-03-01 03:00] VITALS: BP 124/64
[2021-03-01 07:00] VITALS: BP 112/74
[2021-03-01] MEDS ORDERED: BARIUM SULFATE 60% 355 ML SUSP PO ONE (08:00)
--- NOTE | 2021-03-01 11:04 | RAD ---
EXAM: DG SMALL BOWEL FOLLOW THROUGH 03/01/2021 8:35 AM CLINICAL INDICATION: Nausea and vomiting COMPARISON: CT abdomen and pelvis 02/27/2021 TECHNIQUE: Overhead wood preserving plant laborer image was acquired. The patient drank barium and overhead images at 0 and 30 minutes were obtained. Fluoroscopy was performed during manual compression of bowel. FINDINGS: There are cholecystectomy clips on wood preserving plant laborer image. Bowel gas pattern is normal. The stomach a nd small bowel are normal in morphology. No evidence of small bowel obstruction. Contrast reaches the colon by 30 minutes. No abnormal loops of bowel seen with compression. Total fluoroscopic time 3.1 m inutes. IMPRESSION: Normal small bowel follow-through. Electronically signed by: Lisa Rivero MD (03/01/2021 11:01 AM) [id number]
[2021-03-01 11:48] VITALS: BP 123/70
--- NOTE | 2021-03-01 11:58 | PDOC ---
[employer] PROGRESS NOTE Date of Service DOS: DATE: 03/01/21 TIME: 11:55 Chief Complaint Chief Complaint Acute abdominal pain due to enteritis Possible pancreatitis Volume depletion History of Present Illness History of Present Illness 03/01/2021 Patient seen and evaluated. She denies any abdominal pain, nausea, or vomiting. States her diarrhea is improving. She had abdominal series today that showed normal small bowel follow-through. Patient states she has an appetite. Will attempt clear liquids and advance as tolerated. If she tolerates her diet she may be will discharge today after seen by GI. Will prepare discharge accordingly. Greater than 30 minutes spent managing the discharge of this patient. 02/28/2021 Patient seen and examined Her is present Discussed with RN Chart reviewed Vitals/I&O Vitals/I&O: Vital Signs Date Time Temp Pulse Resp B/P (MAP) Pulse Ox O2 Delivery O2 Flow Rate FiO2 03/01/21 11:48 97.6 60 18 123/70 (87) 98 Room Air 97.6 I & O 02/28/21 02/28/21 03/01/21 15:00 23:00 07:00 Intake Total 950 ml 350 ml Balance 950 ml 350 ml Physical Exam General: Alert, Oriented X3 Heart: Regular rate Lungs: Clear Abdomen: Normal bowel sounds, No tenderness, Other (Slightly tender) Extremities: No clubbing Skin: No rashes, No breakdown Assessment and Plan Assessmemt and Plan Problems Medical Problems: (1) Enteritis Status: Acute (2) Pancreatitis Status: Acute Comment Review of Relevant I have reviewed the following items simona (where applicable) has been applied. Justifications for Admission Other Justification DARIAN CAROLINA MD Mar 01, 2021 11:58
--- NOTE | 2021-03-01 12:04 | PDOC3 ---
Discharge Summary Visit Information Date of Admission: Feb 27, 2021 Date of Discharge: Mar 01, 2021 Final Diagnosis Problems Medical Problems: (1) Enteritis Status: Acute (2) Pancreatitis Status: Acute Brief Hospital Course Allergies Allergies Coded Allergies Type Severity Reaction Last Updated Verified Sulfa (Sulfonamide Antibiotics) Allergy Intermediate 04/17/14 No Vital Signs Vital Signs Date Time Temp Pulse Resp B/P (MAP) Pulse Ox O2 Delivery O2 Flow Rate FiO2 03/01/21 11:48 97.6 60 18 123/70 (87) 98 Room Air 97.6 Lab Results Laboratory Tests Test 02/28/21 04:00 White Blood Count 6.4 x10^3/uL (4.0-11.0) Red Blood Count 3.63 x10^6/uL (3.50-5.40) Hemoglobin 12.5 g/dL (12.0-15.5) Hematocrit 35.6 % (36.0-47.0) Mean Corpuscular Volume 98 fL (79-100) Mean Corpuscular Hemoglobin 34 pg (25-35) Mean Corpuscular Hemoglobin Concent 35 g/dL (31-37) Red Cell Distribution Width 12.5 % (11.5-14.5) Platelet Count 210 x10^3/uL (140-400) Neutrophils (%) (Auto) 54 % (31-73) Lymphocytes (%) (Auto) 35 % (24-48) Monocytes (%) (Auto) 8 % (0-9) Eosinophils (%) (Auto) 3 % (0-3) Basophils (%) (Auto) 1 % (0-3) Neutrophils # (Auto) 3.4 x10^3/uL (1.8-7.7) Lymphocytes # (Auto) 2.2 x10^3/uL (1.0-4.8) Monocytes # (Auto) 0.5 x10^3/uL (0.0-1.1) Eosinophils # (Auto) 0.2 x10^3/uL (0.0-0.7) Basophils # (Auto) 0.1 x10^3/uL (0.0-0.2) Sodium Level 146 mmol/L (136-145) Potassium Level 3.3 mmol/L (3.5-5.1) Chloride Level 112 mmol/L (98-107) Carbon Dioxide Level 23 mmol/L (21-32) Anion Gap 11 (6-14) Blood Urea Nitrogen 7 mg/dL (7-20) Creatinine 0.9 mg/dL (0.6-1.0) Estimated GFR (Cockcroft-Gault) 65.0 Glucose Level 76 mg/dL (70-99) Calcium Level 7.9 mg/dL (8.5-10.1) Phosphorus Level 3.1 mg/dL (2.6-4.7) Magnesium Level 1.8 mg/dL (1.8-2.4) Brief Hospital Course Ms. Taylor is a 55 old female who presented with acute abdominal pain secondary to possible enteritis or gastroparesis. Consultation was placed to GI. CT abdomen pelvis on admission showed few fluid distended small bowel loops identified in the right lower quadrant abdomen with minimal surrounding fat stranding could be mild enteritis an questionable minimal fat stranding identified about the pancreas could be mild pancreatitis. Lipase 77 on admission. She had small bowel series that showed normal small bowel follow- through. As her symptoms resolved she tolerated clear liquid diet with ad vancement, and was stable for discharge. Discharge Information Condition at Discharge: Improved Follow Up: Weeks Disposition/Orders: D/C to Home Scheduled Azithromycin (Zithromax) 250 Mg Tablet, 1 PKG PO UD for bronchitis, #1 Prescribed by: FRAN KAUFFMAN APRN on 09/06/18 2248 Dicyclomine Hcl (Dicyclomine Hcl) 10 Mg Capsule, 1 CAP PO QID for 3 Days, #12 Ref 11 Prescribed by: TEJINDER RALPH DO on 02/03/21 1514 Lidocaine (Lidoderm) 1 Patch Patch, 1 PATCH TD DAILY, #10 Prescribed by: JULISSA WATTS on 07/24/14 1136 Naproxen (Naprosyn) 500 Mg Tablet, 500 MG PO BIDWMEALS, #30 Prescribed by: JULISSA WATTS on 07/24/14 1136 Nitrofurantoin Monohyd/M-Cryst (Macrobid 100 Mg Capsule) 100 Mg Capsule, 1 CAP PO BID for 7 Days, #14 Ref 0 Prescribed by: TEJINDER RALPH DO on 02/03/21 1514 Ondansetron Hcl (Zofran) 4 Mg Tablet, 1 TAB PO PRN Q6-8HRS for nausea for 3 Days, #12 Prescribed by: TEJINDER RALPH DO on 02/03/21 1514 Oseltamivir Phosphate (Tamiflu) 75 Mg Capsule, 1 CAP PO BID, #10 Prescribed by: STEFAN MARIE MD on 11/21/19 2207 Prednisone (Prednisone) 50 Mg Tablet, 1 TAB PO DAILY for bronchitis, #5 Prescribed by: FRAN KAUFFMAN APRN on 09/06/18 2249 Scheduled PRN Albuterol Sulfate (Proair Hfa) 8.5 Gm Hfa.aer.ad, 1 PUFF INH PRN Q6HRS PRN for SHORTNESS OF BREATH, #1 Prescribed by: FRAN KAUFFMAN APRN on 09/06/18 2249 Albuterol Sulfate (Proair Hfa Inhaler) 8.5 Gm Hfa.aer.ad, 1-2 PUFF INH PRN Q6HRS PRN for SHORTNESS OF BREATH for 10 Days, #1 Ref 0 Prescribed by: WISAM PETERSEN APRN on 09/14/18 2043 Benzonatate (Tessalon Perle) 100 Mg Capsule, 1 CAP PO TID PRN for COUGH, #21 Ref 0 Prescribed by: WISAM PETERSEN APRN on 08/31/18 1735 Hydrocodone/Chlorphen Polis (Hydrocodone-Chlorpheniram Susp) 5 Ml Sharonda.er.12h, 5 ML PO PRN Q12HR PRN for COUGH, #120 Ref 0 Prescribed by: FRAN KAUFFMAN APRN on 09/06/18 2248 Ibuprofen (Ibuprofen) 400 Mg Tablet, 400 MG PO PRN Q6HRS PRN for INFLAMMATION, #20 Prescribed by: [place] ABEBE MD on 03/29/16 0346 Ondansetron (Zofran Odt) 4 Mg Tab.rapdis, 1 TAB SL Q8HRS PRN for NAUSEA, #10 Prescribed by: SANTOS ERAZO MD on 06/04/16 0453 [Acetaminophen] 500 MG TABLET, 500 MG PO PRN Q6HRS PRN for PAIN / TEMP, #90 Prescribed by: JULISSA WATTS on 07/24/14 1136 Justicifation of Admission Dx: Justifications for Admission: Justification of Admission Dx: Yes DARIAN CAROLINA MD Mar 01, 2021 12:04
--- NOTE | 2021-03-01 12:10 | PDOC ---
Date of Service: DATE: 03/01/21 TIME: 11:51 Subjective: Subjective: No n/v, no abd pain, little diarrhea. Feels better. Objective: Vital Signs: Vital Signs Date Time Temp Pulse Resp B/P (MAP) Pulse Ox O2 Delivery O2 Flow Rate FiO2 03/01/21 11:48 97.6 60 18 123/70 (87) 98 Room Air 97.6 Imaging: SBS 03/01 IMPRESSION: Normal small bowel follow-through. CT A/P 02/27 IMPRESSION: 1. Few fluid distended small bowel loops identified in the right lower quadrant abdomen with minimal surrounding fat stranding could be mild enteritis. 2. Questionable minimal fat stranding identified about the pancreas could be mild pancreatitis. Correlate with lab values. 3. Liquid stool identified in the colon likely diarrhea. 4. Schmorl's node with minimal compression change identified in the superior endplate of T11, L1 vertebral bodies. PE: GEN: NAD LUNGS: CTAB HEART: RRR ABD: NABS, S/ND/NT NEURO/PSYCH: A & O 3 A/P: N/v, abd pain, diarrhea - resolving - ?recurrent issue H/o gastroparesis -- Advance diet. DC soon if tolerates. Stool studies pending. Can plan for outpt scopes. Justicifation of Admission Dx: Justifications for Admission: Justification of Admission Dx: Yes ALAN VALADEZ Mar 01, 2021 12:10
[2021-03-01 15:00] VITALS: BP 108/68
--- NOTE | 2021-03-01 15:20 | NUR ---
Patient escorted out with belongings and discharge instructions by this RN in wheelchair to private vehicle to spouse. IV and telemonitor discontinued. Tolerated well.
== END 2021-03-01 15:20 | disposition home or self-care (01) ==
LOC: ER 09:27 → INTOOBSV 13:19 → ED HOLD 13:19 → 6 SOUTH 15:02
PROVIDERS: ADMIT Internal Medicine; ATTEND Internal Medicine
DX: K52.9 Noninfective gastroenteritis and colitis, unspecified (principal); I49.9 Cardiac arrhythmia, unspecified; K85.90 Acute pancreatitis without necrosis or infection, unspecified; E86.9 Volume depletion, unspecified; Z90.49 Acquired absence of other specified parts of digestive tract; Z95.0 Presence of cardiac pacemaker; Z98.51 Tubal ligation status
CPT/HCPCS: 36415; 71045; 74177; 74250; 80048; 80053; 81001; 83690; 83735; 84100; 84484; 85025; 87086; 87493; 93005; 96361; 96374; 96375; 96376; 99285; G0378; J2405; J3010; J7030; Q9967; 87328; 87329; G0379

== ENCOUNTER 2021-09-06 15:13 | Emergency (ER) | payer OTHER ==
[~2021-09-06] VITALS: Ht 154.9 cm; Wt 65.9 kg
[2021-09-06] MEDS ORDERED: ASPIRIN 325 MG TABLET PO ONE (15:30)
[2021-09-06] MEDS: NITROGLYCERIN SUBLINGUAL 0.4 MG BOTTLE OF 25. SL PRN (15:46)
--- NOTE | 2021-09-06 15:51 | RAD ---
XR CHEST 1V Clinical Indication: Reason: CHEST PAIN Comparison: AP chest February 27, 2021. Findings: There is right chest dual-chamber pacer. The cardiomediastinal silhouette is normal. Lungs are clear. There is no pneumothorax. No pleural effusion is appreciated. No acute bone abnormality. IMPRESSION: No acute cardiopulmonary process. Electronically signed by: Andrew Prajapati MD (09/06/2021 3:49 PM) [facility]ERVanessa
--- NOTE | 2021-09-06 16:12 | PHYS DOC ---
Past Medical History Past Medical History: Arrhythmia, Hepatitis Additional Past Medical Histor: neurocardiogenic syncope, PACER Past Surgical History: Cholecystectomy, Pacemaker Smoking Status: Never Smoker Alcohol Use: None Drug Use: None General Adult EDM: Chief Complaint: CHEST PAIN HPI: HPI: Patient is a 56 year old female who presents with 2130 last night began having left chest pressure and at times its hurts with inspiration with left arm tingling. She states left arm tingling has been going on for couple weeks. Patient states she is does not take any blood thinners. Her doctor is at . She has a history of bradycardia with a pacemaker, neurocardiogenic syncope, hepatitis, cholecystectomy. Denies fever, abdominal pain, nausea, vomiting, diarrhea, shortness of breath, dizziness, syncope, focal weakness, vision change. Review of Systems: Review of Systems: Constitutional: Denies fever or chills. [] Eyes: Denies change in visual acuity. [] HENT: Denies nasal congestion or sore throat. [] Respiratory: Denies cough or shortness of breath. [] Cardiovascular: +chest pain or denies edema. [] GI: Denies abdominal pain, nausea, vomiting, bloody stools or diarrhea. [] : Denies dysuria. [] Musculoskeletal: Denies back pain or joint pain. [] Integument: Denies rash. [] Neurologic: Denies headache, focal weakness or sensory changes. + Left arm tingling [] Endocrine: Denies polyuria or polydipsia. [] Lymphatic: Denies swollen glands. [] Psychiatric: Denies depression or anxiety. [] Heart Score: C/O Chest Pain: Yes HEART Score for Chest Pain: HEART Score for Chest Pain Response (Comments) Value History Moderately Suspicious 1 ECG Nonspecific Repolarizatio 1 Age >45 - < 65 1 Risk Factors 1 or 2 Risk Factors 1 Troponin < Normal Limit 0 Total 4 Risk Factors: Risk Factors: DM, Current or recent (<one month) smoker, HTN, HLP, family history of CAD, obesity. Risk Scores: Score 0 - 3: 2.5% MACE over next 6 weeks - Discharge Home Score 4 - 6: 20.3% MACE over next 6 weeks - Admit for Clinical Observation Score 7 - 10: 72.7% MACE over next 6 weeks - Early Invasive Strategies Current Medications: Current Medications Medications (Trade) Dose Ordered Sig/Tiara Start Time Stop Time Status Last Admin Dose Admin Aspirin (Isabel Aspirin) 325 mg 1X ONCE 09/06/21 15:30 09/06/21 15:31 DC 09/06/21 15:47 325 MG Nitroglycerin (Nitrostat) 0.4 mg PRN Q5MIN PRN 09/06/21 15:30 09/06/21 15:46 0.4 MG Allergies: Allergies: Allergies Coded Allergies Type Severity Reaction Last Updated Verified Sulfa (Sulfonamide Antibiotics) Allergy Intermediate 04/17/14 No Physical Exam: PE: Constitutional: Well developed, well nourished, no acute distress, non-toxic appearance. [] HENT: Normocephalic, atraumatic, bilateral external ears normal, oropharynx moist, no oral exudates, nose normal. [] Eyes: PERRLA, EOMI, conjunctiva normal, no discharge. [] Neck: Normal range of motion, no tenderness, supple, no stridor. [] Cardiovascular:Heart rate regular rhythm, no murmur [] Lungs & Thorax: Bilateral breath sounds clear to auscultation [] Abdomen: Bowel sounds normal, soft, no tenderness, no masses, no pulsatile masses. [] Skin: Warm, dry, no erythema, no rash. [] Back: No tenderness, no CVA tenderness. [] Extremities: No tenderness, no cyanosis, no clubbing, ROM intact, no edema. [] Neurologic: Alert and oriented X 3, normal motor function, normal sensory function, no focal deficits noted. [] Psychologic: Affect normal, judgement normal, mood normal. [] Normal physical exam Current Patient Data: Vital Signs: Vital Signs Date Time Temp Pulse Resp B/P (MAP) Pulse Ox O2 Delivery O2 Flow Rate FiO2 09/06/21 15:46 66 165/84 09/06/21 15:15 98.4 18 99 Room Air 98.4 EKG: EK and read by Dr. Ross is a sinus rhythm but no STEMI. [] Radiology/Procedures: Radiology/Procedures: [] Impression: [facility] [address] [place] [address] IMAGING REPORT Signed PATIENT: BRODIE GUTHRIE ACCOUNT: [id number] : 1965 LOCATION: ER AGE: 56 SEX: F EXAM STATUS: PRE ER ORD. PHYSICIAN: BRIAN PAIGE APRN REASON: CHEST PAIN PROCEDURE: PORTABLE CHEST 1V XR CHEST 1V Clinical Indication: Reason: CHEST PAIN Comparison: AP chest February 27, 2021. Findings: There is right chest dual-chamber pacer. The cardiomediastinal silhouette is normal. Lungs are clear. There is no pneumothorax. No pleural effusion is appreciated. No acute bone abnormality. IMPRESSION: No acute cardiopulmonary process. Electronically signed by: Andrew Prajapati MD (09/06/2021 3:49 PM) [facility] DICTATED and SIGNED BY: ANDREW PRAJAPATI MD DATE: 09/06/21 [id number] 0 Course & Med Decision Making: Course & Med Decision Making Pertinent Labs and Imaging studies reviewed. (See chart for details) See HPI. Alert and oriented x4. Ambulatory with steady gait. Speaks in full clear sentences. No extremity edema. Lungs are clear to auscultation all lobes. EKG shows a sinus rhythm and no STEMI. Skin pink warm and dry. Cap r efill less than 2 seconds. Chest x-ray shows no acute findings. 1744: still awaiting blood work to be drawn and results 1899: Still awaiting blood work results. I still do not have a troponin result. Patient did receive 1 nitroglycerin and stated it did help only slightly and she is now complaining of a headache. Patient is refusing a second nitroglycerin. I have now ordered fentanyl. 1919: First troponin level came back normal. Patient complained of chest pain. Patient is admitted to the hospitalist. I will consult cardiology. [] Zachary Disclaimer: Zachary Disclaimer: This electronic medical record was generated, in whole or in part, using a voice recognition dictation system. Departure Departure Impression: Primary Impression: Chest pain Qualified Codes: R07.9 - Chest pain, unspecified Disposition: ADMITTED INPATIENT Admitting Physician: ISABELLA Condition: STABLE Referrals: SHAHRAM GRAFF MD (PCP) BRIAN PAIGE APRN Sep 06, 2021 16:12
[2021-09-06 18:19] LABS: BASO # 0.1 x10^3/uL (0.0-0.2); BASO % 1 % (0-3); EOS # 0.1 x10^3/uL (0.0-0.7); EOS % 1 % (0-3); HEMATOCRIT 40.8 % (36.0-47.0); HEMOGLOBIN 13.9 g/dL (12.0-15.5); LYMPH # 2.3 x10^3/uL (1.0-4.8); LYMPH % 29 % (24-48); MEAN CORPUSCULAR HEMOGLOBIN 34 pg (25-35); MEAN CORPUSCULAR HGB CONC 34 g/dL (31-37); MEAN CORPUSCULAR VOLUME 98 fL (79-100); MONO # 0.4 x10^3/uL (0.0-1.1); MONO % 5 % (0-9); NEUT # 5.1 x10^3/uL (1.8-7.7); NEUT % 64 % (31-73); PLATELET COUNT 245 x10^3/uL (140-400); RED BLOOD COUNT 4.16 x10^6/uL (3.50-5.40); RED CELL DISTRIBUTION WIDTH 12.1 % (11.5-14.5)
[2021-09-06 18:29] LABS: PROTHROMBIN TIME PATIENT 12.5 SEC (11.7-14.0)
[2021-09-06 18:32] LABS: D-DIMER 0.44 ug/mlFEU (0.00-0.50)
[2021-09-06] MEDS ORDERED: fentaNYL PF VIAL 100 MCG/2 ML VIAL IVP ONE (18:45)
[2021-09-06 18:48] LABS: CALCIUM 8.6 mg/dL (8.5-10.1); CREATININE 0.8 mg/dL (0.6-1.0); GFR 74.2; POTASSIUM 4.2 mmol/L (3.5-5.1)
[2021-09-06 19:02] LABS: ALBUMIN 3.3 g/dL (3.4-5.0); ALBUMIN/GLOBULIN RATIO 0.8 (1.0-1.7); MAGNESIUM 2.4 mg/dL (1.8-2.4); TOTAL BILIRUBIN 0.4 mg/dL (0.2-1.0); TOTAL PROTEIN 7.3 g/dL (6.4-8.2)
[2021-09-06] MEDS ORDERED: ONDANSETRON PF 4 MG/2 ML VIAL. IVP PRN (20:15)
[2021-09-06] MEDS ORDERED: ACETAMINOPHEN 325 MG TABLET. PO PRN (20:15)
[2021-09-06 23:00] VITALS: BP 98/55
[2021-09-07 03:00] VITALS: BP 94/69
[2021-09-07] MEDS: NITROGLYCERIN SUBLINGUAL 0.4 MG BOTTLE OF 25. SL PRN (05:48)
[2021-09-07 05:50] VITALS: BP 139/74
--- NOTE | 2021-09-07 05:50 | NUR ---
Assisted to toilet, no c/o dizziness. Upon return to room, patient c/o upper sternal chest pain, rating 8/10. Nitro given SL. C/o nausea, Zofran given IVP.
[2021-09-07 06:16] VITALS: BP 98/57
--- NOTE | 2021-09-07 08:47 | PDOC1 ---
History and Physical Date of Service: DOS: DATE: 09/07/21 TIME: 08:43 Chief Complaint: Chief Complain: Chest pain. History of Present Illness: HPI: History obtained from discussion with the ED physician and chart review and the patient herself: 56-year-old female with past medical history of symptomatic bradycardia with pacemaker placement, GERD, depression who comes in with left arm tingling that started for couple of weeks with house chores and last night started having chest pressure in the left side of her chest. She points with one finger on just the left side of her border of her sternum. She states that she had a pacemaker placed by doctors at . Upon palpation of her pain on the left side the pain is reproducible. There is no weakness with her strength on the left extremities. Denies any fevers, nausea vomiting, diarrhea, shortness of breath, syncope, palpitations, vision changes or blackouts. Past Medical/Surgical History: PMH/PSH: Past Medical History: Arrhythmia, Hepatitis, neurocardiogenic syncope, symptomatic bradycardia, history of gastroparesis, history of esophagitis, his tory of hemorrhoids Past Surgical History: Cholecystectomy, Pacemaker Allergies: Allergies: Coded Allergies: Sulfa (Sulfonamide Antibiotics) (Unverified Allergy, Intermediate, 04/17/14) Family History: Family History: History of hypertension Social History: Social History: Smoking Status: Never Smoker Alcohol Use: None Drug Use: None Current Medications: Current Medications Current Medications Aspirin (Isabel Aspirin) 325 mg 1X ONCE PO Last administered on 09/06/21at 15:47; Start 09/06/21 at 15:30; Stop 09/06/21 at 15:31; Status DC Nitroglycerin (Nitrostat) 0.4 mg PRN Q5MIN PRN SL CHEST PAIN Last administered on 09/07/21at 05:48; Start 09/06/21 at 15:30 Fentanyl Citrate (Fentanyl 2ml Vial) 50 mcg 1X ONCE IVP Last administered on 09/06/21at 19:19; Start 09/06/21 at 18:45; Stop 09/06/21 at 18:46; Status DC Ondansetron HCl (Zofran) 4 mg PRN Q8HRS PRN IVP NAUSEA/VOMITING Last administered on 09/07/21at 05:55; Start 09/06/21 at 20:15; Stop 09/07/21 at 20:14 Acetaminophen (Tylenol) 650 mg PRN Q4HRS PRN PO FEVER > 100.3'F; Start 09/06/21 at 20:15; Stop 09/07/21 at 20:14 Active Scripts Active Dicyclomine Hcl 10 Mg Capsule 1 Cap PO QID 3 Days Proair Hfa (Albuterol Sulfate) 8.5 Gm Hfa.aer.ad 1 Puff INH PRN Q6HRS PRN Hydrocodone-Chlorpheniram Susp (Hydrocodone/Chlorphen Polis) 5 Ml Sharonda.er.12h 5 Ml PO PRN Q12HR PRN ROS: Review of Systems Review of System REVIEW OF SYSTEMS: GENERAL: Denies weakness SKIN: No bruising, hair changes or rashes. EYES: No blurred, double or loss of vision. NOSE AND THROAT: No history of nosebleeds, hoarseness or sore throat. HEART: Positive for chest pain LUNGS: Denies cough, hemoptysis, wheezing or shortness of breath. GASTROINTESTINAL: Denies changes in appetite, nausea, vomiting, diarrhea or constipation. GENITOURINARY: No history of frequency, urgency, hesitancy or nocturia. NEUROLOGIC: Left arm tingling. PSYCHIATRIC: No history of panic, anxiety or depression. ENDOCRINE: No history of heat or cold intolerance, polyuria or polydipsia. EXTREMITIES: Denies joint pain, pain on walking or stiffness. Physical Exam: Vital Signs: Vital Signs Date Time Temp Pulse Resp B/P (MAP) Pulse Ox O2 Delivery O2 Flow Rate FiO2 09/07/21 06:16 60 22 98/57 (71) 93 Room Air 09/07/21 03:00 98.6 98.6 Physcial Exam: General: Well developed, well nourished, no acute distress, well appearing HEENT: Pupils equally round and reactive to light, EOMI, no discharge, normal conjunctiva Neck: Supple, no nuchal rigidity, no JVD, trachea midline, no tenderness Cardiac: RRR, no murmurs, no gallops, no rubs Chest/Lungs: CTAB, no wheeze, no rhonchi, no crackles Abdomen: soft, non-distended, no guarding, no peritoneal signs, non-tender Back: No tenderness Extremities: no edema, pulses intact, non-tender,capillary refill <3 sec bilateral upper and lower extremities, Neuro: Alert and oriented x 4, no focal deficits, normal speech Labs: Labs: Laboratory Tests Test 09/06/21 17:55 09/06/21 21:14 09/06/21 23:55 White Blood Count 8.0 x10^3/uL (4.0-11.0) Red Blood Count 4.16 x10^6/uL (3.50-5.40) Hemoglobin 13.9 g/dL (12.0-15.5) Hematocrit 40.8 % (36.0-47.0) Mean Corpuscular Volume 98 fL (79-100) Mean Corpuscular Hemoglobin 34 pg (25-35) Mean Corpuscular Hemoglobin Concent 34 g/dL (31-37) Red Cell Distribution Width 12.1 % (11.5-14.5) Platelet Count 245 x10^3/uL (140-400) Neutrophils (%) (Auto) 64 % (31-73) Lymphocytes (%) (Auto) 29 % (24-48) Monocytes (%) (Auto) 5 % (0-9) Eosinophils (%) (Auto) 1 % (0-3) Basophils (%) (Auto) 1 % (0-3) Neutrophils # (Auto) 5.1 x10^3/uL (1.8-7.7) Lymphocytes # (Auto) 2.3 x10^3/uL (1.0-4.8) Monocytes # (Auto) 0.4 x10^3/uL (0.0-1.1) Eosinophils # (Auto) 0.1 x10^3/uL (0.0-0.7) Basophils # (Auto) 0.1 x10^3/uL (0.0-0.2) Prothrombin Time 12.5 SEC (11.7-14.0) Prothromb Time International Ratio 0.9 (0.8-1.1) Activated Partial Thromboplast Time 29 SEC (24-38) D-Dimer (Rosalie) 0.44 ug/mlFEU (0.00-0.50) Sodium Level 139 mmol/L (136-145) Potassium Level 4.2 mmol/L (3.5-5.1) Chloride Level 105 mmol/L (98-107) Carbon Dioxide Level 27 mmol/L (21-32) Anion Gap 7 (6-14) Blood Urea Nitrogen 10 mg/dL (7-20) Creatinine 0.8 mg/dL (0.6-1.0) Estimated GFR (Cockcroft-Gault) 74.2 BUN/Creatinine Ratio 13 (6-20) Glucose Level 81 mg/dL (70-99) Calcium Level 8.6 mg/dL (8.5-10.1) Magnesium Level 2.4 mg/dL (1.8-2.4) Total Bilirubin 0.4 mg/dL (0.2-1.0) Aspartate Amino Transf (AST/SGOT) 20 U/L (15-37) Alanine Aminotransferase (ALT/SGPT) 28 U/L (14-59) Alkaline Phosphatase 111 U/L (46-116) Troponin I High Sensitivity 6 ng/L (4-50) 6 ng/L (4-50) 6 ng/L (4-50) SY-Gnd-K-Type Natriuretic Peptide 179 pg/mL (0-124) Total Protein 7.3 g/dL (6.4-8.2) Albumin 3.3 g/dL (3.4-5.0) Albumin/Globulin Ratio 0.8 (1.0-1.7) Lipase 112 U/L (73-393) Laboratory Tests Test 09/06/21 17:55 09/06/21 21:14 09/06/21 23:55 White Blood Count 8.0 x10^3/uL (4.0-11.0) Red Blood Count 4.16 x10^6/uL (3.50-5.40) Hemoglobin 13.9 g/dL (12.0-15.5) Hematocrit 40.8 % (36.0-47.0) Mean Corpuscular Volume 98 fL (79-100) Mean Corpuscular Hemoglobin 34 pg (25-35) Mean Corpuscular Hemoglobin Concent 34 g/dL (31-37) Red Cell Distribution Width 12.1 % (11.5-14.5) Platelet Count 245 x10^3/uL (140-400) Neutrophils (%) (Auto) 64 % (31-73) Lymphocytes (%) (Auto) 29 % (24-48) Monocytes (%) (Auto) 5 % (0-9) Eosinophils (%) (Auto) 1 % (0-3) Basophils (%) (Auto) 1 % (0-3) Neutrophils # (Auto) 5.1 x10^3/uL (1.8-7.7) Lymphocytes # (Auto) 2.3 x10^3/uL (1.0-4.8) Monocytes # (Auto) 0.4 x10^3/uL (0.0-1.1) Eosinophils # (Auto) 0.1 x10^3/uL (0.0-0.7) Basophils # (Auto) 0.1 x10^3/uL (0.0-0.2) Prothrombin Time 12.5 SEC (11.7-14.0) Prothromb Time International Ratio 0.9 (0.8-1.1) Activated Partial Thromboplast Time 29 SEC (24-38) D-Dimer (Rosalie) 0.44 ug/mlFEU (0.00-0.50) Sodium Level 139 mmol/L (136-145) Potassium Level 4.2 mmol/L (3.5-5.1) Chloride Level 105 mmol/L (98-107) Carbon Dioxide Level 27 mmol/L (21-32) Anion Gap 7 (6-14) Blood Urea Nitrogen 10 mg/dL (7-20) Creatinine 0.8 mg/dL (0.6-1.0) Estimated GFR (Cockcroft-Gault) 74.2 BUN/Creatinine Ratio 13 (6-20) Glucose Level 81 mg/dL (70-99) Calcium Level 8.6 mg/dL (8.5-10.1) Magnesium Level 2.4 mg/dL (1.8-2.4) Total Bilirubin 0.4 mg/dL (0.2-1.0) Aspartate Amino Transf (AST/SGOT) 20 U/L (15-37) Alanine Aminotransferase (ALT/SGPT) 28 U/L (14-59) Alkaline Phosphatase 111 U/L (46-116) Troponin I High Sensitivity 6 ng/L (4-50) 6 ng/L (4-50) 6 ng/L (4-50) ZV-Pkw-R-Type Natriuretic Peptide 179 pg/mL (0-124) Total Protein 7.3 g/dL (6.4-8.2) Albumin 3.3 g/dL (3.4-5.0) Albumin/Globulin Ratio 0.8 (1.0-1.7) Lipase 112 U/L (73-393) Images: Images CXR Impression: 1. No acute cardiopulmonary process. Assessment/Plan Assessment/Plan Atypical chest pain, unlikely due to unstable angina or non-STEMI Costochondritis History of pacemaker placement, telemetry showing sinus rhythm EKG showing no acute ST elevations Troponin negative x3 Pending cardiology evaluation IV morphine as needed Consider Lovenox Maintain O2 sats between 88 to 95% Trend troponins Continue telemetry monitoring Monitor for electrolyte abnormalities We will place diclofenac or Lidoderm patch on chest for costochondritis Disposition: Anticipate discharge in the next 24 hours if chest pain-free and after cardiology evaluation Justifications for Admission Other Justification JOON ROSE MD Sep 07, 2021 08:47
[2021-09-07 08:52] LABS: BILIRUBIN,URINE NEGATIVE (NEG); CLARITY,URINE CLEAR; COLOR,URINE YELLOW; NITRITE,URINE NEGATIVE (NEG); PH,URINE 5.5 (<5.0-8.0); PROTEIN,URINE NEGATIVE (NEG-TRACE); UROBILINOGEN,URINE 0.2 mg/dL (0.2 mg/dL)
[2021-09-07 09:00] LABS: BARBITURATES NEG (NEG); BENZODIAZEPINES NEG (NEG); CANNABINOIDS NEG (NEG); COCAINE NEG (NEG); METHADONE NEG (NEG); OPIATES NEG (NEG); PHENCYCLIDINE NEG (NEG)
[2021-09-07] MEDS ORDERED: ACETAMINOPHEN 325 MG TABLET. PO PRN (09:00)
[2021-09-07] MEDS ORDERED: DOCUSATE SODIUM 100 MG CAPSULE. PO PRN (09:00)
[2021-09-07] MEDS ORDERED: PROCHLORPERAZINE 10 MG/2 ML VIAL. IV PRN (09:00)
[2021-09-07] MEDS ORDERED: MORPHINE SULFATE 2 MG/ML INJ. IV PRN (09:00)
[2021-09-07] MEDS ORDERED: diphenhydrAMINE HCL 25 MG CAPSULE PO PRN ×2 (09:00)
[2021-09-07] MEDS ORDERED: SENNOSIDES 8.6 MG TABLET PO PRN (09:00)
[2021-09-07] MEDS ORDERED: diphenhydrAMINE 50 MG/ML VIAL IVP PRN (09:00)
[2021-09-07] MEDS ORDERED: LORazepam 0.5 MG TABLET PO PRN (09:00)
[2021-09-07] MEDS ORDERED: ONDANSETRON PF 4 MG/2 ML VIAL. IVP PRN (09:00)
[2021-09-07] MEDS ORDERED: DEXTROSE 50% 25 GM / 50ML DISP.SYRIN. IV PRN (09:00)
[2021-09-07] MEDS ORDERED: ZOLPIDEM 5 MG TABLET. PO PRN ×2 (09:00)
[2021-09-07 09:01] LABS: AMPHETAMINE/METHAMPHETAMINE NEG (NEG)
[2021-09-07 09:06] LABS: BACTERIA,URINE FEW /HPF (0-FEW); HYALINE CASTS, URINE OCCASIONAL /HPF; RBC,URINE 0 /HPF (0-2)
[2021-09-07] MEDS: MORPHINE SULFATE 2 MG/ML INJ. IVP PRN ×2 (11:04→13:29)
--- NOTE | 2021-09-07 11:17 | PDOC2 ---
LILIANA MARRERO [employer]ACHINE 09/07/21 1117: CARDIAC CONSULT DATE OF CONSULT Date of Consult DATE: 09/07/21 TIME: 11:09 REASON FOR CONSULT Reason for Consult: Chest pain REFERRING PHYSICIAN Referring Physician: Laura SOURCE Source: Chart review, Patient HISTORY OF PRESENT ILLNESS HISTORY OF PRESENT ILLNESS This is a 56 yo female admitted for complains of chest pain and nausea. Reports of nausea from 2 days back and lately has not been eating well feeling full easily. She does have hx of gastroparesis and do not have any medications for it. Reports of chest pain sharp left sternal border and easily reporoducible with mild palpation. Also reports on tingling to left arm which is reproducible with arm extension. No significant SOA or palpatations. No flu like symptoms and Denies any recent falls or injury or recent significant house chores or heavy lifting. Denies any any MVA. She only takes ASA. She follows with [facility] cardiology in relation to her PPM for hx of neurocardiogenic syncope. Denies any NSAID th erapy. PAST MEDICAL HISTORY Cardiovascular: CAD (?), Valve insufficiency, Other (pericarditis; neurocardiogenic syncope) GI: GERD, Hemorrhoids, Other (gastroparesis; eosinophilic esophagitis; tubular colon adenoma) Psych: Depression PAST SURGICAL HISTORY Past Surgical History: Pacemaker ([facility]), Cholecystectomy FAMILY HISTORY Family History: Hypertension SOCIAL HISTORY Smoke: No ALCOHOL: none Drugs: None Lives: with Family CURRENT MEDICATIONS CURRENT MEDICATIONS Current Medications Medications (Trade) Dose Ordered Sig/Tiara Route PRN Reason Start Time Stop Time Status Last Admin Dose Admin Aspirin (Isabel Aspirin) 325 mg 1X ONCE PO 09/06/21 15:30 09/06/21 15:31 DC 09/06/21 15:47 Nitroglycerin (Nitrostat) 0.4 mg PRN Q5MIN PRN SL CHEST PAIN 09/06/21 15:30 09/07/21 05:48 Fentanyl Citrate (Fentanyl 2ml Vial) 50 mcg 1X ONCE IVP 09/06/21 18:45 09/06/21 18:46 DC 09/06/21 19:19 Ondansetron HCl (Zofran) 4 mg PRN Q8HRS PRN IVP NAUSEA/VOMITING 09/06/21 20:15 09/07/21 08:57 DC 09/07/21 05:55 Ondansetron HCl (Zofran) 4 mg PRN Q6HRS PRN IVP NAUSEA/VOMITING 09/07/21 09:00 09/07/21 11:03 Lorazepam (Ativan) 0.5 mg PRN Q6HRS PRN PO ANXIETY / AGITATION 09/07/21 09:00 09/07/21 11:04 Morphine Sulfate (Morphine Sulfate) 2 mg PRN Q2HR PRN IVP SEVERE PAIN 7-10 09/07/21 09:00 09/08/21 08:59 09/07/21 11:04 ALLERGIES ALLERGIES: Coded Allergies: Sulfa (Sulfonamide Antibiotics) (Unverified Allergy, Intermediate, 04/17/14) ROS Review of System 14 point ROS evaluated with pertinent positives noted per HPI PHYSICAL EXAM General: Alert, Oriented X3, Cooperative, No acute distress HEENT: Atraumatic, Mucous membr. moist/pink Lungs: Clear to auscultation, Normal air movement Heart: Regular rate (SR), Normal S1, Normal S2, No murmurs Abdomen: Soft, No tenderness Extremities: No cyanosis, No edema Skin: No breakdown, No significant lesion Neuro: Normal speech, Sensation intact Psych/Mental Status: Mental status NL, Other (anxious) MUSCULOSKELETAL: No deformity VITALS/I&O VITALS/I&O: Vital Signs Date Time Temp Pulse Resp B/P (MAP) Pulse Ox O2 Delivery O2 Flow Rate FiO2 09/07/21 11:04 22 97 Room Air 09/07/21 07:54 98.0 67 103/59 (74) 98.0 I & O 09/06/21 09/06/21 09/07/21 15:00 23:00 07:00 Intake Total 0 ml Balance 0 ml LABS Lab: Laboratory Tests Test 09/06/21 17:55 09/06/21 21:14 09/06/21 23:55 09/07/21 08:41 White Blood Count 8.0 x10^3/uL (4.0-11.0) Red Blood Count 4.16 x10^6/uL (3.50-5.40) Hemoglobin 13.9 g/dL (12.0-15.5) Hematocrit 40.8 % (36.0-47.0) Mean Corpuscular Volume 98 fL (79-100) Mean Corpuscular Hemoglobin 34 pg (25-35) Mean Corpuscular Hemoglobin Concent 34 g/dL (31-37) Red Cell Distribution Width 12.1 % (11.5-14.5) Platelet Count 245 x10^3/uL (140-400) Neutrophils (%) (Auto) 64 % (31-73) Lymphocytes (%) (Auto) 29 % (24-48) Monocytes (%) (Auto) 5 % (0-9) Eosinophils (%) (Auto) 1 % (0-3) Basophils (%) (Auto) 1 % (0-3) Neutrophils # (Auto) 5.1 x10^3/uL (1.8-7.7) Lymphocytes # (Auto) 2.3 x10^3/uL (1.0-4.8) Monocytes # (Auto) 0.4 x10^3/uL (0.0-1.1) Eosinophils # (Auto) 0.1 x10^3/uL (0.0-0.7) Basophils # (Auto) 0.1 x10^3/uL (0.0-0.2) Prothrombin Time 12.5 SEC (11.7-14.0) Prothrombin Time INR 0.9 (0.8-1.1) Activated Partial Thromboplast Time 29 SEC (24-38) D-Dimer (Rosalie) 0.44 ug/mlFEU (0.00-0.50) Sodium Level 139 mmol/L (136-145) Potassium Level 4.2 mmol/L (3.5-5.1) Chloride Level 105 mmol/L (98-107) Carbon Dioxide Level 27 mmol/L (21-32) Anion Gap 7 (6-14) Blood Urea Nitrogen 10 mg/dL (7-20) Creatinine 0.8 mg/dL (0.6-1.0) Estimated GFR (Cockcroft-Gault) 74.2 BUN/Creatinine Ratio 13 (6-20) Glucose Level 81 mg/dL (70-99) Calcium Level 8.6 mg/dL (8.5-10.1) Magnesium Level 2.4 mg/dL (1.8-2.4) Total Bilirubin 0.4 mg/dL (0.2-1.0) Aspartate Amino Transferase (AST) 20 U/L (15-37) Alanine Aminotransferase (ALT) 28 U/L (14-59) Alkaline Phosphatase 111 U/L (46-116) Troponin I High Sensitivity 6 ng/L (4-50) 6 ng/L (4-50) 6 ng/L (4-50) KA-Bvd-W-Type Natriuretic Peptide 179 pg/mL (0-124) H Total Protein 7.3 g/dL (6.4-8.2) Albumin 3.3 g/dL (3.4-5.0) L Albumin/Globulin Ratio 0.8 (1.0-1.7) L Lipase 112 U/L (73-393) Urine Collection Type Unknown Urine Color Yellow Urine Clarity Clear Urine pH 5.5 (<5.0-8.0) Urine Specific [place] 1.025 (1.000-1.030) Urine Protein Negative mg/dL (NEG-TRACE) Urine Glucose (UA) Negative mg/dL (NEG) Urine Ketones (Stick) Negative mg/dL (NEG) Urine Blood Negative (NEG) Urine Nitrite Negative (NEG) Urine Bilirubin Negative (NEG) Urine Urobilinogen Dipstick 0.2 mg/dL (0.2 mg/dL) Urine Leukocyte Esterase Trace (NEG) Urine RBC 0 /HPF (0-2) Urine WBC 1-4 /HPF (0-4) Urine Squamous Epithelial Cells Mod /LPF Urine Bacteria Few /HPF (0-FEW) Urine Hyaline Casts Occasional /HPF Urine Mucus Mod /LPF Urine Opiates Screen Neg (NEG) Urine Methadone Screen Neg (NEG) Urine Barbiturates Neg (NEG) Urine Phencyclidine Screen Neg (NEG) Urine Amphetamine/Methamphetamine Neg (NEG) Urine Benzodiazepines Screen Neg (NEG) Urine Cocaine Screen Neg (NEG) Urine Cannabinoids Screen Neg (NEG) Urine Ethyl Alcohol Neg (NEG) Laboratory Tests 09/06/21 17:55 Laboratory Tests 09/06/21 17:55 STRESS TEST STRESS TEST [facility] 11/13/2020 Stress echo Interpretation Summary Baseline: There is normal global and segmental left ventricular systolic function with estimated LVEF=65%. There are no segmental wall motion abno rmalities. Stress: The patient received incremental doses of dobutamine to a peak dose of 40mcg/kg/min and atropine 0.25mg reaching a peak heart rate of 140bpm which was 85% maximum predicted heart rate. The patient reported chest tightness with dobutamine infusion.. The patient had no significant arrythmias. Echocardiographic Findings: All left ventricular wall segments became hyperdynamic with dobutamine. Conclusion: Normal dobutamine stress echocardiogram. There is no echocardiographic evidence of ischemia at this level of stress. See remainder of report for additional findings. Low risk for cardiovascular complications ASSESSMENT/PLAN ASSESSMENT/PLAN 1. Atypical chest pain: doubt ACS. suspect MSK 2. Hx of GERD/gastroparesis: untreated 3. PPM in situ: [facility] due to neurocardiogenic syncope. Maintaining SR 4. GERD exacerbation Recommendations 1. focal pain to chest easily reproducible with palpation and ROM. Trops are normal without acute changes to EKG. Her symptoms are compatible with GERD and inflammatory process associate with MSK. Will defer this further to PCP but no further cardiac workup 2. Follow up with [facility]. 3. Lidocaine patch to chest. FELTON PEREYRA MD 09/07/211912: CARDIAC CONSULT ASSESSMENT/PLAN ASSESSMENT/PLAN Patient seen and examined. Agree with above nurse practitioner note. Noncardiac chest pain. Supportive care. Okay to discharge from cardiac standpoint LILIANA MARRERO APRN Sep 07, 2021 11:17 FELTON PEREYRA MD Sep 07, 2021 19:13
--- NOTE | 2021-09-07 11:39 | EKG ---
[facility] [address] [place] [address] Test Date: 2021-09-06 Test Time: 15:21:45 Pat Name: BRODIE GUTHRIE Department: Room: ED HOLD 3 Gender: F Platform Architect: : 1965 Requested By: BRIAN PAIGE Order Number: [id number] Reading MD: Phill Baxter Measurements Intervals [place] Rate: 68 P: 43 MN: 166 QRS: 12 QRSD: 82 T: 49 QT: 396 QTc: 426 Interpretive Statements SINUS RHYTHM LEFT ATRIAL ABNORMALITY QRS(T) CONTOUR ABNORMALITY CONSIDER ANTEROLATERAL MYOCARDIAL DAMAGE ABNORMAL ECG Electronically Signed On 09-08-2021 8:18:54 DEATH CLAIM CLERK by Phill Baxter
[2021-09-07] MEDS ORDERED: LIDOCAINE (700MG/PATCH) PATCH. TD ONE (12:45)
[2021-09-07] MEDS ORDERED: LIDO700A21 TP (13:52)
[2021-09-07] MEDS ORDERED: DICL20GE TP (13:52)
--- NOTE | 2021-09-07 13:54 | DISCH ---
DISCHARGE INSTRUCTIONS Condition on Discharge Condition on Discharge: Stable Activity After Discharge Activity Instructions for Disc: Activity as tolerated Lifting Instructions after Dis: No heavy lifting Exercise Instruction after Dis: Walk 15 min, 3 x per day Driving Instructions after Dis: Do not drive today Diet after Discharge Diet after Discharge: Cardiac, Regular Diet Texture: Regular Liquid Texture: Thin Liquid Swallowing Supervision: None needed Checks after Discharge Checks after discharge: Check blood press - daily, Check your Temp as needed Contacting the DR. after DC Call your doctor for: If your condition worsens Follow-Up Follow up with: PCP within 2 weeks of discharge Follow Up With: Cardiology at for your pacemaker follow-up as needed Treatment/Equipment after DC Adaptive Equipment Issued: None JOON ROSE MD Sep 07, 2021 13:54
--- NOTE | 2021-09-07 13:56 | PDOC3 ---
[facility]-Discharge Summary Date of Admission: Date of Admission: Sep 07, 2021 Date of Discharge: Date of Discharge: Sep 07, 2021 Discharge Diagnosis: Discharge Diagnosis: Atypical chest pain, unlikely due to unstable angina or non-STEMI Costochondritis History of pacemaker placement, telemetry showing sinus rhythm Hospital Course: Hospital Course: 56-year-old female with past medical history of symptomatic bradycardia with pacemaker placement, GERD, depression who comes in with left arm tingling that started for couple of weeks with house chores and last night started having chest pressure in the left side of her chest. She points with one finger on just the left side of her border of her sternum. She states that she had a pacemaker placed by doctors at . Upon palpation of her pain on the left side the pain is reproducible. There is no weakness with her strength on the left extremities. Denies any fevers, nausea vomiting, diarrhea, shortness of breath, syncope, palpitations, vision changes or blackouts. By time of discharge patient was chest pain-free and troponins were negative. EKG and telemetry monitoring showed no major events. Patient will be sent home with Lidoderm patch and diclofenac gel as needed. Patient will need to follow- up with cardiology at and her PCP. Disposition: Disposition/Orders: D/C to Home Activity: Activity: Resume previous activity Diet: Diet: Cardiac Medications: Home Meds Active Scripts Lidocaine (Lidocaine PATCH ) 1 Each Adh..patch, 1 EACH TP DAILY for FOR LOCAL PAIN for 30 Days, #30 PATCH REMOVE AFTER 12 HOURS Prov:JOON ROSE MD 09/07/21 Diclofenac Sodium (Voltaren Arthritis Pain) 20 Gm Gel..gram., 20 GM TP Q8-12HRS for musculoskeletal pain for 10 Days, #1 BOX Prov:JOON ROSE MD 09/07/21 Dicyclomine Hcl (DICYCLOMINE HCL) 10 Mg Capsule, 1 CAP PO QID for 3 Days, #12 CA P 11 Refills Prov:TEJINDER RALPH DO 02/03/21 Albuterol Sulfate (Proair Hfa) 8.5 Gm Hfa.aer.ad, 1 PUFF INH PRN Q6HRS PRN for SHORTNESS OF BREATH, #1 INHALER Prov:FRAN KAU[employer]MAN [employer] TECH 09/06/18 Hydrocodone/Chlorphen Polis (HYDROCODONE-CHLORPHENIRAM SUSP) 5 Ml Sharonda.er.12h, 5 ML PO PRN Q12HR PRN for COUGH, #120 ML 0 Refills Prov:FRAN KAUFFMAN [employer] TECH 09/06/18 Scheduled Diclofenac Sodium (Voltaren Arthritis Pain), 20 GM TP Q8-12HRS Dicyclomine Hcl (Dicyclomine Hcl), 1 CAP PO QID Lidocaine (Lidocaine PATCH ), 1 EACH TP DAILY Scheduled PRN Albuterol Sulfate (Proair Hfa), 1 PUFF INH PRN Q6HRS PRN for SHORTNESS OF BREATH Hydrocodone/Chlorphen Polis (Hydrocodone-Chlorpheniram Susp), 5 ML PO PRN Q12HR PRN for COUGH Total Time: Total Time: Total time spent was 31 minutes in preparing scripts, discharge planning with SWI and RN and preparing this discharge summary Patient seen and examined on day of discharge. No acute abnormal findings. Justicifation of Admission Dx: Justifications for Admission: Justification of Admission Dx: Yes JOON ROSE MD Sep 07, 2021 13:56
[2021-09-07 18:00] VITALS: BP 105/64
== END 2021-09-07 13:56 | disposition home or self-care (01) ==
LOC: ER 15:13 → UNDOADMOB 19:20 → ED HOLD 19:20 → ER 21:40
DX: R07.89 Other chest pain (principal); Z90.49 Acquired absence of other specified parts of digestive tract; Z95.0 Presence of cardiac pacemaker
CPT/HCPCS: 36415; 71045; 80053; 80307; 81001; 83690; 83735; 83880; 84484; 85025; 85379; 85610; 85730; 87086; 93005; 96374; 96375; 96376; 99285; J0780; J2270; J2405; J3010; 96361